=== PATIENT | female | born 1995 | race Caucasian/White ===

== ENCOUNTER 2016-09-10 07:12 | Emergency (ER) | payer OTHER ==
[~2016-09-10] VITALS: Ht 167.6 cm; Wt 109.8 kg
[~2016-09-10 07:12] MED LIST: ADVAIR DISKUS 21 DSK PO; ALBUTEROL2.5 MG/3 M INH/SOL; DICLEGIS DR 101 EACH PO; DIVALPROEX SOD250 M1 PO; MACROBID 100 M100 MG PO; MEDROL4 M2 PO; MONTELUKAST SOD10 MG PO; NORFLEX100 MG PO; PEPCID20 M1 PO; PERCOCET 5-3251 EACH PO; PRENATAL VITAM1 EAC1 PO; PROAIR HFA0.09 MG/Ac PO; PROAIR HFA8.5 GM INH; QVAR0.08 MG/Ac PO; RISPERIDONE2 MG PO; SYMBICORT 16010.2 GM INH; TRAMADOL HCL50 M1 PO; TRAMADOL50 MG PO; TYLENOL #31 TAB PO; ZOFRAN ODT4 M1 PO
--- NOTE | 2016-09-10 07:17 | ED GENERAL ADULT ---
History of Present Illness General Chief Complaint: Chest Pain Stated Complaint: CP-SEEN 09/08 FOR SAME, 6 MONTHS PREG Source: patient Exam Limitations: no limitations Vital Signs & Intake/Output Vital Signs & Intake/Output ED Intake and Output 09/11 0000 09/10 1200 Intake Total Output Total Balance Patient 242 lb Weight Allergies Coded Allergies: ibuprofen (Severe, HIVES 07/11/16) Reconcile Medications Albuterol Sulfate 3 ML NEB 3 ML INH PRN ASTHMA (Reported) Budesonide/Formoterol Fumara (Symbicort 160-4.5 Mcg Inhaler) 160 MCG/4.5 MCG PUF 2 PUF INH BID ASTHMA (Reported) Ondansetron (Zofran Odt) 4 MG TAB.RAPDIS 1 TAB PO Q8H PRN NAUSEA Vit/Iron Fumarate/FA ( Vitamin Formula Tb) 1 EACH TABLET 1 TAB PO DAILY Tylenol With Codeine (Tylenol With Codeine #4 Tablet) 300 MG-60 MG TABLET 1 TAB PO BID PRN PAIN Triage Nurses Notes Reviewed? yes Onset: Abrupt Duration: day(s): HPI: 09/10/16 7:30 AM 21-year-old female presents to the emergency department with severe chest pain, left neck pain, lower abdominal pain and left-sided flank pain. The patient has been seen in the emergency department for similar symptoms. She is currently on Zofran and Tylenol. She is currently approximately 6 months . She is a 1 para 0.. The onset of the pain was abrupt, the duration has been days , the severity is significant as her symptoms required her to come to the emergency department for care. She complains of suprapubic abdominal pain, left sided low back pain, anterior chest pain, and left-sided neck pain. She says it 's worse when she lies flat. There is no headache, visual disturbances, shortness of breath, vaginal bleeding, fever, or other complaints. She does have a past medical history of asthma. No significant past surgical history. She is allergic to ibuprofen ; she gets hives) she does not smoke. Past History Travel History Traveled to [place] past 21 day No Medical History Any Pertinent Medical History? 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 No Review of Systems Review of Systems Constitutional: Denies: fever. EENTM: Denies: visual changes. Respiratory: Denies: short of breath. Cardiovascular: Reports: chest pain. GI: Reports: see HPI. Genitourinary: Denies: dysuria, frequency. Musculoskeletal: Reports: back pain. Skin: Denies: rash. Neurological/Psychological: Denies: headache. Hematologic/Endocrine: Denies: bruising, bleeding. Physical Exam Physical Exam General Appearance: well developed/nourished, alert, awake, anxious, mild distress Head: atraumatic, normal appearance Eyes: Bilateral: normal appearance, PERRL, EOMI. Ears, Nose, Throat: normal pharynx, normal ENT inspection, hearing grossly normal Neck: normal inspection, supple, full range of motion Respiratory: normal breath sounds, chest non-tender, no respiratory distress Cardiovascular: regular rate/rhythm Peripheral Pulses: 4+ radial (R), 4+ radial (L) Gastrointestinal: soft, non-tender, UTERUS PALPABLE ABOVE THE UMBILICUS Back: normal inspection, no vertebral tenderness Extremities: normal inspection, normal range of motion, no edema Neurologic/Psych: no motor/sensory deficits, awake, alert, oriented x 3, normal gait Skin: intact, normal color, warm/dry Core Measures ACS in differential dx? No CVA/TIA Diagnosis: No Severe Sepsis Present: No Septic Shock Present: No Progress Differential Diagnoses I considered the following diagnoses in my evaluation of the patient: [ Costochondritis, round ligament pain, muscular pain due to gravid uterus, pulmonary embolism, pyelonephritis, renal colic, UTI, appendicitis, preeclampsia ] Plan of Care: Orders Procedure Date/time Status CULTURE,URINE 09/10 0634 Active URINALYSIS 09/10 07 Complete D-DIMER 09/10 733 Complete COMPREHENSIVE METABOLIC PANEL 09/10 07 Complete CBC WITHOUT DIFFERENTIAL 09/10 733 Complete EKG 09/10 0714 Active Laboratory Tests 09/10/16 0834: D-Dimer 216 09/10/16 0803: Urine Color YEL, Urine Clarity CLEAR, Urine pH 7.0, Ur Specific [place] 1.010, Urine Protein NEG, Urine Ketones NEG, Urine Nitrite NEG, Urine Bilirubin NEG, Urine Urobilinogen 0.2, Ur Leukocyte Esterase NEG, Ur Microscopic EXAM NOT REQUIRED, Urine Hemoglobin NEG, Urine Glucose NEG 09/10/16 0743: Anion Gap 8, Estimated GFR > 60, BUN/Creatinine Ratio 8.0, Glucose 86, Calcium 8.5, Total Bilirubin 0.3, AST 16, ALT 29, Alkaline Phosphatase 84, Total Protein 5.9 L, Albumin 2.9 L, Globulin 3.0, Albumin/Globulin Ratio 1.0 L, CBC w Diff NO MAN DIFF REQ, RBC 3.73 L, MCV 87.1, MCH 30.0, RDW 13.3, MPV 8.8, Gran % 78.0 H, Lymphocytes % 15.2 L, Monocytes % 5.8, Eosinophils % 0.9, Basophils % 0.1, Absolute Granulocytes 8.8 H, Absolute Lymphocytes 1.7, Absolute Monocytes 0.7 H, Absolute Eosinophils 0.1, Absolute Basophils 0, PUBS MCHC 34.4 Microbiology 09/10 08 URINE ROUT: Urine Culture - RECD Initial ED EKG: NSR Prior EKG: unchanged Departure Departure Disposition: HOME OR SELF CARE Condition: Stable Clinical Impression Primary Impression: Secondary Impressions: Abdominal pain, Chest pain Referrals: DAMIR HIGGINBOTHAM APRN (PCP/Family) Referred to [facility] as new patient No Departure Forms: Customer Survey General Discharge Information Prescriptions: Current Visit Scripts Tylenol With Codeine (Tylenol With Codeine #4 Tablet) 1 TAB PO BID PRN PAIN #6 TAB Comments 09/10/16 1:22 PM Ultrasound reveals mild bilateral hydronephrosis. Intrauterine . Results below. The patient is essentially asymptomatic at this time I spoke to Dr. Trinidad Devine. She is in agreement with the plan; patient will follow-up with [employer] GRINDER tomorrow Tylenol with codeine as needed for pain. PATIENT: SHAUNA BENAVIDEZ PRESENT AGE: 21 PATIENT ACCOUNT NO: [id number] : 93 LOCATION: [facility] ORDERING PHYSICIAN: ADRIEL BARAHONA DO SERVICE DATE: 09/10/16 EXAM TYPE: US - US- VIABILITY; US-RENAL/KIDNEY EXAMINATION: US RENAL US CLINICAL INFORMATION: patient with abdominal pain. Evaluate for hydronephrosis. COMPARISON: Previous exams July 2016. TECHNIQUE: Grayscale and color imaging of the kidneys. Limited transabdominal OB ultrasound. FINDINGS: RENAL ULTRASOUND: Exam is limited due to patient body habitus. The right kidney measures 11.6 x 5 point 4 x 4 by 5.9 cm in length. Renal cortical thickness and echogenicity is normal. There is a 3 mm echogenic density in the upper pole of the right kidney questionable for small stone. There are 2 right renal cysts measuring 3 x 4 mm in the upper pole and 11 x 8 x 9 mm in the midpole. There is mild right hydronephrosis. The left kidney measures 10.5 x 6.8 x 5.8 cm in length. Renal cortical thickness and echogenicity is normal. There is a 6 x 4 x 2 mm echogenic density in the mid left kidney questionable for a stone. No hydronephrosis or mass is seen. The bladder is partially distended. No stone or mass is seen. Bilateral ureteral jets are identified. Prevoid bladder volume is 80 mL. There is no post void bladder residual. OB ULTRASOUND: There is a single viable intrauterine fetus in breech position. heart rate is 154 bpm. There is an anterior placenta with grade 1 changes. Cervical length is 3.9 cm. The cervix appears long and closed. IMPRESSION: RENAL ULTRASOUND: Limited exam due to patient body habitus. Mild right hydronephrosis. Small right renal cysts. Bilateral small echogenic densities in the kidneys questionable for small stones. Bilateral ureteral jets identified in the bladder. ULTRASOUND: Single viable intrauterine in breech position. DICTATED BY: GAYLA MENDOSA MD DATE/TIME DICTATED:09/10/161138 CONSUMER BANKER:NIKOLE DATE/TIME TRANSCRIBED:09/10/161138 CONFIDENTIAL, DO NOT COPY WITHOUT APPROPRIATE AUTHORIZATION. <Electronically signed in Other Vendor System> SIGNED BY: GAYLA MENDOSA MD [id number] Critical Care Note Critical Care Note Critical Care Time: non-applicable
[2016-09-10 08:01] LABS: ABSOLUTE BASOPHIL COUNT 0 /CUMM (0.0-0.2); ABSOLUTE EOSINOPHIL COUNT 0.1 /CUMM (0.0-0.7); ABSOLUTE GRANULOCYTE CT 8.8 /CUMM (1.4-6.5); ABSOLUTE LYMPH COUNT 1.7 /CUMM (1.2-3.4); ABSOLUTE MONOCYTE COUNT 0.7 /CUMM (0.10-0.60); BASOPHIL % 0.1 % (0.0-2.0); EOSINOPHIL % 0.9 % (0-5); HEMATOCRIT 32.5 % (37-47); MEAN CORPUSCULAR HGB CONC 34.4 G/DL (33.0-37.0); MEAN CORPUSCULAR VOLUME 87.1 FL (81.0-99.0); MEAN PLATELET VOLUME 8.8 FL (7.4-10.4); PLATELET COUNT 219 /CUMM (130-400); RBC DISTRIBUTION WIDTH 13.3 % (11.5-14.5); RED BLOOD CELL CT 3.73 /CUMM (4.20-5.40); WHITE BLOOD CELL COUNT 11.2 /CUMM (4.8-10.8)
--- NOTE | 2016-09-10 13:20 | ULTRASOUND REPORT ---
EXAMINATION: US RENAL US CLINICAL INFORMATION: patient with abdominal pain. Evaluate for hydronephrosis. COMPARISON: Previous exams July 2016. TECHNIQUE: Grayscale and color imaging of the kidneys. Limited transabdominal OB ultrasound. FINDINGS: RENAL ULTRASOUND: Exam is limited due to patient body habitus. The right kidney measures 11.6 x 5 point 4 x 4 by 5.9 cm in length. Renal cortical thickness and echogenicity is normal. There is a 3 mm echogenic density in the upper pole of the right kidney questionable for small stone. There are 2 right renal cysts measuring 3 x 4 mm in the upper pole and 11 x 8 x 9 mm in the midpole. There is mild right hydronephrosis. The left kidney measures 10.5 x 6.8 x 5.8 cm in length. Renal cortical thickness and echogenicity is normal. There is a 6 x 4 x 2 mm echogenic density in the mid left kidney questionable for a stone. No hydronephrosis or mass is seen. The bladder is partially distended. No stone or mass is seen. Bilateral ureteral jets are identified. Prevoid bladder volume is 80 mL. There is no post void bladder residual. OB ULTRASOUND: There is a single viable intrauterine fetus in breech position. heart rate is 154 bpm. There is an anterior placenta with grade 1 changes. Cervical length is 3.9 cm. The cervix appears long and closed. IMPRESSION: RENAL ULTRASOUND: Limited exam due to patient body habitus. Mild right hydronephrosis. Small right renal cysts. Bilateral small echogenic densities in the kidneys questionable for small stones. Bilateral ureteral jets identified in the bladder. ULTRASOUND: Single viable intrauterine in breech position.
[2016-09-10] MEDS ORDERED: TYLENOL WITH C1 EAC1 PO (13:25)
[2016-09-10 13:36] VITALS: BP 118/58
== END 2016-09-10 13:37 ==
LOC: ERH 07:12
PROVIDERS: Emergency Medicine
DX: O26.92 Pregnancy related conditions, unspecified, second trimester (principal); R10.32 Left lower quadrant pain; R07.89 Other chest pain
CPT/HCPCS: 76775; 81003; 87086; 93005; 93010; 96374; J0131

== ENCOUNTER 2016-09-18 15:30 | Emergency (ER) | payer OTHER ==
[~2016-09-18] VITALS: Ht 168.9 cm; Wt 110.2 kg
[~2016-09-18 15:30] MED LIST changes: +TYLENOL WITH C1 EAC1 PO
--- NOTE | 2016-09-18 16:09 | ED AMS/SEIZURE/WEAK/DIZZY ---
History of Present Illness General Chief Complaint: Dizziness Stated Complaint: C/O DIZZINESS AND NAUSEA, 6 MO Source: patient, old records Exam Limitations: no limitations Vital Signs & Intake/Output Vital Signs & Intake/Output Vital Signs Date Time Temp Pulse Resp B/P Pulse O2 O2 Flow FiO2 Ox Delivery Rate 09/18 1534 97.2 83 20 138/84 98 Room Air Allergies Coded Allergies: ibuprofen (Severe, HIVES 09/23/16) Reconcile Medications Albuterol Sulfate 3 ML NEB 3 ML INH PRN ASTHMA (Reported) Albuterol Sulfate (Proair Hfa) 90 MCG HFA.AER.AD 2 PUF INH Q4-6 PRN PRN RESPIRATORY (Reported) Budesonide/Formoterol Fumara (Symbicort 160-4.5 Mcg Inhaler) 160 MCG/4.5 MCG PUF 2 PUF INH BID ASTHMA (Reported) Ciprofloxacin HCl (Cipro) 500 MG TABLET 1 TAB PO BID UTI Ondansetron HCl (Unknown Strength) TABLET (Unknown Dose) UNKNOWN (Reported) Vit/Iron Fumarate/FA ( Vitamin Formula Tb) 1 EACH TABLET 1 TAB PO DAILY Triage Note: TRIAGE: PT TO ER C/C INTERMITTENT UPPER ABDOMINAL PAIN, DIZZINESS, NAUSEA. DENIES VOMITING. DENIES URINARY S/S. DENIES FEVERS. DENIES RECENT SICK CONSTACTS. PT CURRENTLY 28 WEEKS , DUE DATE 01/02/2017. . PT OF DR DAMIAN. STATES WAS SEEN LAST WEEK FOR S/S OF BILATERAL FLANK PAIN AND WAS TOLD HER KIDNEYS WERE SWOLLEN AND THAT THE BABY WAS BREACH. REPORTS FEELING BABY MOVE PER NORMAL. SPOKE WITH DIANNA AMBROSE IN [facility] AND PATIENT IS TO REMAIN IN ER FOR EVAL AND THEY ARE AVAILABLE FOR HEART TONES IF NEEDED. Triage Nurses Notes Reviewed? yes Onset: Abrupt Duration: day(s): (1) Timing: single episode today Injury Environment: home Severity: mild No Modifying Factors: none : Yes Patient currently breastfeeds: No HPI: This is a 21 year old female at 6 months who presents with dizziness and epigastric discomfort. No vomiting, fever, chills. Denies any vaginal bleeding. No headache or blurred vision. Denies any trauma or sick contacts. She states she feels the baby moving well. SHe follows up with Dr. Damian and states that she is being monitored for bilatearl hydroureter. Past History Travel History Traveled to [place] past 21 day No Medical History Any Pertinent Medical History? 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 No Review of Systems Review of Systems Constitutional: Denies: chills, fever. EENTM: Reports: no symptoms. Respiratory: Denies: cough, short of breath. Cardiovascular: Denies: chest pain, palpitations. GI: Reports: abdominal pain (epigastric discomfort), nausea. Denies: vomiting. Genitourinary: Reports: no symptoms. Musculoskeletal: Reports: no symptoms. Skin: Reports: no symptoms. Neurological/Psychological: Reports: anxiety. Hematologic/Endocrine: Denies: bruising, bleeding, polyuria, polydipsia. Immunologic/Allergic: Denies: splenectomy. All Other Systems: Reviewed and Negative Physical Exam Physical Exam General Appearance: well developed/nourished, alert, awake, anxious, mild distress Head: atraumatic, normal appearance Eyes: Bilateral: normal appearance, PERRL, EOMI. Ears, Nose, Throat: normal pharynx, normal ENT inspection, hearing grossly normal Neck: normal inspection, supple, full range of motion Respiratory: normal breath sounds, chest non-tender, no respiratory distress Cardiovascular: regular rate/rhythm, normal peripheral pulses Peripheral Pulses: 2+ radial (R), 2+ radial (L) Gastrointestinal: soft, NONTENDER, GRAVID Extremities: normal range of motion Neurologic/Psych: no motor/sensory deficits, awake, alert, oriented x 3, normal gait Skin: intact, normal color, warm/dry Core Measures ACS in differential dx? No CVA/TIA Diagnosis: No Severe Sepsis Present: No Septic Shock Present: No Progress Differential Diagnosis: , ANEMIA, DEHYDRATION, HYPOGLYCEMIA, VERTIGO Plan of Care: Orders Procedure Date/time Status FingerStick- Glucose 09/18 1624 Active MISTAKE 09/18 1617 Active URINALYSIS 01/10 1617 Active EKG 09/18 1617 Active Current Medications Sig/Lala Start time Last Medication Dose Stop Time Status Admin Ondansetron HCl 4 MG ONCE ONE 09/18 1630 CAN (Zofran) 09/18 1631 Laboratory Tests 09/18/16 1653: Urine Color Pending, Urine Clarity Pending, Urine pH Pending, Ur Specific [place] Pending, Urine Protein Pending, Urine Ketones Pending, Urine Nitrite Pending, Urine Bilirubin Pending, Urine Urobilinogen Pending, Ur Leukocyte Esterase Pending, Ur Microscopic SEDIMENT EXAMINED, Urine RBC Pending, Urine Hemoglobin Pending, Urine Glucose Pending Initial ED EKG: none Departure Departure Time of Disposition: 1714 Disposition: HOME OR SELF CARE Condition: Stable Clinical Impression Primary Impression: Dizziness Secondary Impressions: Referrals: DAMIR HIGGINBOTHAM APRN (PCP/Family) Additional Instructions: FOLLOW UP WITH YOUR OB IN THE OFFICE. RETURN NEEDED. Departure Forms: Customer Survey General Discharge Information
[2016-09-18] MEDS ORDERED: ONDANSETRON HCL4 MG (16:24)
[2016-09-18] MEDS ORDERED: PROAIR HFA8.5 GM INH (16:25)
[2016-09-18 17:18] VITALS: BP 124/78
== END 2016-09-18 17:19 ==
LOC: ERH 15:30
DX: O26.93 Pregnancy related conditions, unspecified, third trimester (principal); R42 Dizziness and giddiness; Z3A.28 28 weeks gestation of pregnancy
CPT/HCPCS: 81001; 93005; 93010; J3101

== ENCOUNTER 2016-09-23 18:07 | Emergency (ER) | payer OTHER ==
[~2016-09-23] VITALS: Ht 168.9 cm; Wt 110.2 kg
[~2016-09-23 18:07] MED LIST changes: +ONDANSETRON HCL4 MG
--- NOTE | 2016-09-23 18:54 | ED GI/GU/ABDOMINAL COMPLAINT ---
History of Present Illness General Chief Complaint: General Adult Stated Complaint: UPPER AND LOWER ABD PAIN Source: patient Exam Limitations: no limitations Vital Signs & Intake/Output Vital Signs & Intake/Output Vital Signs Date Time Temp Pulse Resp B/P Pulse O2 O2 Flow FiO2 Ox Delivery Rate 09/23 2011 97.2 83 18 105/66 97 Room Air 09/23 1810 98.0 87 20 101/66 98 Room Air Allergies Coded Allergies: ibuprofen (Severe, HIVES 09/23/16) Triage Note: TRIAGE: PT TO ER C/C DIFFUSE ABD PAIN X "A LITTLE OVER AN HOUR AGO". CONSTANT SINCE ONSET. -N/V/D. LNBM THIS MORNING, -URINARY S/S. LMP UNKNOWN. PT CURRENTLY 25 WEEKS , , DUE DATE 01/02/2017. PATIENT OF DR DAMIAN. DENIES VAGINAL BLEEDING OR DISCHARGE. WAS SEEN AND CLEARED BY MATERNITY PRIOR TO BEING SENT TO ER. Triage Nurses Notes Reviewed? yes ? Y Is pt currently ? No HPI: This patient is a 21-year-old female who is approximately 6 months gestation who presented to the emergency department today sent down to us by the maternity Center after she was obstructed typically cleared for evaluation of upper abdominal pain. The patient reported that this evening she started to have acute onset of lower and upper abdominal pain. She reported that it felt cramping and sharp. She reported that it was originally a 9 out of 10. When she got to the maternity Center here [facility], the pain went down to an 8 out of 10. The pain is currently a 7 out of 10. The patient reported that she has not had any nausea or vomiting. She denied any urinary burning, urgency , frequency, blood in the urine. No leakage of fluids. The baby is still moving normally. She denied any fevers or chills, constipation or diarrhea. The patient did report that her pain now seems to be localized right upper abdomen. (SARA WOODS,YULIA) Reconcile Medications Albuterol Sulfate 3 ML NEB 3 ML INH PRN ASTHMA (Reported) Albuterol Sulfate (Proair Hfa) 90 MCG HFA.AER.AD 2 PUF INH Q4-6 PRN PRN RESPIRATORY (Reported) Budesonide/Formoterol Fumara (Symbicort 160-4.5 Mcg Inhaler) 160 MCG/4.5 MCG PUF 2 PUF INH BID ASTHMA (Reported) Ciprofloxacin HCl (Cipro) 500 MG TABLET 1 TAB PO BID UTI Ondansetron HCl (Unknown Strength) TABLET (Unknown Dose) UNKNOWN (Reported) Vit/Iron Fumarate/FA ( Vitamin Formula Tb) 1 EACH TABLET 1 TAB PO DAILY (MADELINE YEBOAH,JHON Tirado) Past History Travel History Traveled to [place] past 21 day No Medical History Any Pertinent Medical History? 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 No (YULIA RUIZ PA-C) Review of Systems Review of Systems Constitutional: Reports: no symptoms. EENTM: Reports: no symptoms. Respiratory: Reports: no symptoms. Cardiovascular: Reports: no symptoms. GI: Reports: see HPI. Genitourinary: Reports: no symptoms. Musculoskeletal: Reports: no symptoms. Skin: Reports: no symptoms. Neurological/Psychological: Reports: no symptoms. All Other Systems: Reviewed and Negative (YULIA RUIZ PA-C) Physical Exam Physical Exam Gastrointestinal: normal bowel sounds, soft, non-tender, no organomegaly, UTERUS PALPABLE APPROXIMATELY 4 CM ABOVE THE UMBILICUS. nO REBOUND OR GUARDING. nO PERITONEAL SIGNS.NEGATIVE Anderson SIGN. nO mCbURNEY'S POINT TENDERNESS Comments: Well-developed well-nourished person in no acute distress HEENT: Normal EENT exam, moist mucous membranes Neck: Supple Back: Normal inspection. No CVA tenderness Cardiovascular: Regular rate and rhythm with no murmurs, rubs, or gallops Respiratory: Chest nontender. No respiratory distress. Breath sounds clear to auscultation bilaterally Extremity: Normal and equal pulses Neuro: Alert oriented x3, cranial nerves II through XII grossly intact. Skin: No appreciable rash on exposed skin, skin is warm and dry. Psych: Mood and affect is normal Core Measures ACS in differential dx? Yes Severe Sepsis Present: No Septic Shock Present: No (YULIA RUIZ PA-C) Progress Differential Diagnosis: AAA, AMI, appendicitis, biliary colic, bowel obstruction , colon cancer, cholecystitis, diverticulitis, ectopic , endometritis, gastritis, hepatitis, ischemic bowel, inflamm bowel dis, intrauterine , kidney stone, ovarian cyst, ovarian torsion, pancreatitis, PID/cervicitis, PUD/ GERD, perforated viscous, threatened AB, UTI/pyelo Plan of Care: Orders Procedure Date/time Status Add-on Test (ER Only) 09/23 1922 Active LIPASE 09/23 1858 Complete DIRECT BILIRUBIN 09/23 1858 Complete AMYLASE 09/23 1858 Complete HUMAN BETA HCG TITRE 09/23 1836 Complete COMPREHENSIVE METABOLIC PANEL 09/23 1836 Complete CBC WITHOUT DIFFERENTIAL 09/23 1836 Complete Laboratory Tests 09/23/161858: Anion Gap 7, Estimated GFR > 60, BUN/Creatinine Ratio 8.6, Glucose 104 H, Calcium 8.5, Total Bilirubin 0.4, Direct Bilirubin 0.3, AST 16, ALT 19, Alkaline Phosphatase 91, Total Protein 6.3, Albumin 3.1 L, Globulin 3.2, Albumin/ Globulin Ratio 1.0 L, Amylase 41, Lipase 85, Beta HCG, Quant 69225.0, CBC w Diff NO MAN DIFF REQ, RBC 3.76 L, MCV 86.4, MCH 29.6, RDW 13.7, MPV 8.3, Gran % 81.6 H, Lymphocytes % 12.5 L, Monocytes % 4.6, Eosinophils % 0.8, Basophils % 0.5, Absolute Granulocytes 9.1 H, Absolute Lymphocytes 1.4, Absolute Monocytes 0.5, Absolute Eosinophils 0.1, Absolute Basophils 0.1, PUBS MCHC 34.3 09/23/161836: Urine Color Cancelled, Urine Clarity Cancelled, Urine pH Cancelled, Ur Specific Manning Cancelled, Urine Protein Cancelled, Urine Ketones Cancelled, Urine Nitrite Cancelled, Urine Bilirubin Cancelled, Urine Urobilinogen Cancelled, Ur Leukocyte Esterase Cancelled, Ur Microscopic Cancelled, Urine Hemoglobin Cancelled, Urine Glucose Cancelled Initial ED EKG: none Comments: 09/23/2016 6:52:24 PM: Prior to coming into the emergency department, the patient was evaluated and cleared by the childbirth center upstairs. Because she was cleared by [facility] just prior to arrival here in the emergency department, a ultrasound is deferred at this time as ultrasound is not even in the department at this time anymore. Discussed this with Dr. Orellana who is in agreement with this plan. I received a copy of the urinalysis that was collected from the patient approximately one hour ago at 1745. Based on this recent urinalysis, repeat UA was DC'd. This urinalysis is showing 50-75 white blood cells with moderate bacteria and moderate urine esterase. This patient will likely need to be started on another antibiotic for a urinary tract infection. Urine culture is currently pending. 09/23/2016 7:14:17 PM: Discussed the patient with Dr. BERRY, on-call HEEL SEAT FILLER who evaluated this patient in the childbirth center just prior to arrival in the emergency department. She reported that everything looked good that the baby upstairs. She reported that her pain seems to be above the level of the uterus so she is questioning a possible GI issue. Recommended that if the urine sensitivity does not come back prior to discharge, to cover this patient with a course of ciprofloxacin. She reported that she be discussed with this patient in follow-up in the office tomorrow and to drink plenty of fluids as her urine does look concentrated. (YULIA RUIZ PA-C) Departure Departure Disposition: HOME OR SELF CARE Condition: Stable Clinical Impression Primary Impression: UTI (urinary tract infection) Qualifiers: Urinary tract infection type: site unspecified Hematuria presence: without hematuria Qualified Code: N39.0 - Urinary tract infection, site not specified Referrals: DAMIR HIGGINBOTHAM APRN (PCP/Family) Additional Instructions: Take antibiotic as prescribed for urinary tract infection. Continue to take [id number] Tylenol as needed for pain. Please follow-up with your HEEL SEAT FILLER as discussed. Return for any worsening symptoms or concerns. Departure Forms: Customer Survey General Discharge Information Prescriptions: Current Visit Scripts Ciprofloxacin HCl (Cipro) 1 TAB PO BID #14 TAB (YULIA RUIZ PA-C) PA/PRODUCT PICKER Co-Sign Statement Statement: ED Attending supervision documentation- [] I saw and evaluated the patient. I have also reviewed all the pertinent lab results and diagnostic results. I agree with the findings and the plan of care as documented in the PA's/PRODUCT PICKER's documentation. [X] I have reviewed the ED Record and agree with the PA's/PRODUCT PICKER's documentation. [] Additions or exceptions (if any) to the PAs/PRODUCT PICKER's note and plan are summarized below: [] (MADELINE YEBOAH,JHON Tirado)
[2016-09-23 19:03] LABS: ABSOLUTE BASOPHIL COUNT 0.1 /CUMM (0.0-0.2); ABSOLUTE EOSINOPHIL COUNT 0.1 /CUMM (0.0-0.7); ABSOLUTE GRANULOCYTE CT 9.1 /CUMM (1.4-6.5); ABSOLUTE LYMPH COUNT 1.4 /CUMM (1.2-3.4); ABSOLUTE MONOCYTE COUNT 0.5 /CUMM (0.10-0.60); BASOPHIL % 0.5 % (0.0-2.0); EOSINOPHIL % 0.8 % (0-5); GRANULOCYTE % 81.6 % (42.2-75.2); HEMATOCRIT 32.5 % (37-47); MEAN CORPUSCULAR HGB 29.6 PG (27.0-31.0); MEAN CORPUSCULAR HGB CONC 34.3 G/DL (33.0-37.0); MEAN CORPUSCULAR VOLUME 86.4 FL (81.0-99.0); MEAN PLATELET VOLUME 8.3 FL (7.4-10.4); PLATELET COUNT 248 /CUMM (130-400); RBC DISTRIBUTION WIDTH 13.7 % (11.5-14.5); RED BLOOD CELL CT 3.76 /CUMM (4.20-5.40); WHITE BLOOD CELL COUNT 11.1 /CUMM (4.8-10.8)
[2016-09-23] MEDS ORDERED: CIPRO500 M1 PO (20:01)
[2016-09-23 20:12] VITALS: BP 105/66
== END 2016-09-23 20:13 ==
LOC: ERH 18:07
PROVIDERS: Physician Assistant
DX: O23.42 Unspecified infection of urinary tract in pregnancy, second trimester (principal); Z3A.00 Weeks of gestation of pregnancy not specified
CPT/HCPCS: 81001; 87086; 96374; 96375; G0463; J0131; J2405

== ENCOUNTER 2016-09-27 13:26 | Emergency (ER) | payer OTHER ==
[~2016-09-27] VITALS: Ht 167.6 cm; Wt 110.2 kg
[~2016-09-27 13:26] MED LIST changes: +CIPRO500 M1 PO
--- NOTE | 2016-09-27 13:53 | ED PSYCHIATRIC COMPLAINT ---
History of Present Illness General Chief Complaint: Psychiatric Related Complaint Stated Complaint: BIBA ON PEER Source: patient, old records Exam Limitations: no limitations Vital Signs & Intake/Output Vital Signs & Intake/Output Vital Signs Date Time Temp Pulse Resp B/P Pulse O2 O2 Flow FiO2 Ox Delivery Rate 09/27 1843 96.7 86 16 114/59 97 Room Air 09/27 1612 98.2 85 18 134/76 98 Room Air 09/27 1329 98 Room Air 09/27 1328 98.1 90 18 140/75 97 Room Air Allergies Coded Allergies: ibuprofen (Severe, HIVES 09/23/16) Reconcile Medications Albuterol Sulfate 3 ML NEB 3 ML INH PRN ASTHMA (Reported) Albuterol Sulfate (Proair Hfa) 90 MCG HFA.AER.AD 2 PUF INH Q4-6 PRN PRN RESPIRATORY (Reported) Budesonide/Formoterol Fumara (Symbicort 160-4.5 Mcg Inhaler) 160 MCG/4.5 MCG PUF 2 PUF INH BID ASTHMA (Reported) Ciprofloxacin HCl (Cipro) 500 MG TABLET 1 TAB PO BID UTI Ondansetron HCl (Unknown Strength) TABLET (Unknown Dose) UNKNOWN (Reported) Vit/Iron Fumarate/FA ( Vitamin Formula Tb) 1 EACH TABLET 1 TAB PO DAILY Triage Nurses Notes Reviewed? yes : Yes Patient currently breastfeeds: No HPI: 21-year-old female with history of depression, currently 6 months with her first child, first , presents via ambulance with police on a paper. She was at home, lives with her mother, was arguing with her mother when she grabbed a kitchen knife and locked herself in the room and told her mother she was going to kill herself. This prompted her to call police and she was brought here. Patient denies being suicidal at this time however does state that she is depressed and she is worried about delivering in caring for her child after she does deliver because she will be a single mother. She denies any drug or alcohol use, she was seen here 4 days ago for abdominal pain and dizziness and was diagnosed with UTI. She has been on antibiotics for this, no other change in medications. No abdominal pain no vaginal discharge or abnormal bleeding (CHETAN BOWSER) Past History Travel History Traveled to [place] past 21 day No Medical History Any Pertinent Medical History? 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 No (CHETAN BOWSER) Review of Systems Review of Systems Constitutional: Reports: see HPI. EENTM: Reports: no symptoms. Respiratory: Reports: no symptoms. Cardiovascular: Reports: no symptoms. GI: Reports: no symptoms. Genitourinary: Reports: no symptoms. Musculoskeletal: Reports: no symptoms. Skin: Reports: no symptoms. Neurological/Psychological: Reports: see HPI. Hematologic/Endocrine: Reports: no symptoms. Immunologic/Allergic: Reports: no symptoms. All Other Systems: Reviewed and Negative (CHETAN BOWSER) Physical Exam Physical Exam General Appearance: well developed/nourished, mild distress Head: atraumatic Eyes: Bilateral: PERRL, EOMI. Ears, Nose, Throat: normal pharynx, normal ENT inspection, hearing grossly normal Neck: normal inspection, supple Respiratory: normal breath sounds Cardiovascular: regular rate/rhythm Gastrointestinal: soft, non-tender, gravid Extremities: normal range of motion Neurological/Psychiatric: no motor/sensory deficits, awake, alert, anxious Appearance/Memory/Insight: appropriate appearance, appropriate insight, denies illness Behavoir/Eye Contact/Speech: cooperative Thoughts/Hallucinations: normal thought pattern, no apparent hallucination Skin: intact, normal color, warm/dry SAD PERSONS SAD PERSONS Response Value Depression/Hopelessness? yes 2 Single//? yes 1 Social Support? has support 0 Total 3 SAD PERSONS Done? yes (CHETAN BOWSER) Progress Differential Diagnosis: dementia, drug intoxication, drug overdose, drug withdrawal, electrolyte abnormality, encephalitis, hypoglycemia, hypothyroidism, IC hem/mass/tumor, meningitis Plan of Care: Orders Procedure Date/time Status Continuous Observation Monitor 09/27 1338 Active URINE DRUG SCREEN FOR ER ONLY 09/27 1338 Complete URINALYSIS 09/27 1338 Complete ED CRISIS PSYCH CONSULT 09/27 1338 Active Laboratory Tests 09/27/16 1812: Urine Color YEL, Urine Clarity CLEAR, Urine pH 6.0, Ur Specific Stout >= 1.030 , Urine Protein NEG, Urine Ketones NEG, Urine Nitrite NEG, Urine Bilirubin NEG, Urine Urobilinogen 0.2, Ur Leukocyte Esterase TRACE H, Ur Microscopic SEDIMENT EXAMINED, Urine RBC FEW H, Urine WBC 15-25 H, Ur Epithelial Cells MANY H, Urine Crystals 1+ CA OX H, Urine Mucus MOD H, Urine Hemoglobin NEG, Urine Glucose NEG 09/27/16 1811: Urine Opiates Screen < 100.00, Methadone Screen < 40, Barbiturate Screen < 60, Ur Phencyclidine Scrn < 6.00, Amphetamines Screen < 100, U Benzodiazepines Scrn < 85, Urine Cocaine Screen < 50, Urine Cannabis Screen < 5.00 Comments: Patient calm and cooperative, she just had labs 3 days ago and does not require repeat laboratory evaluations. She will require evaluation by our wet chemistry analyst for depression and suicidal gesture. Patient seen and evaluated by crisis. Recommend outpatient follow-up (CHETAN BOWSER) Departure Departure Disposition: HOME OR SELF CARE Condition: Stable Clinical Impression Primary Impression: Depression Qualifiers: Depression Type: major depressive disorder Major depression recurrence: recurrent Active/Remission status: currently active Major depression episode severity: severe Psychotic features: without psychotic features Qualified Code: F33.2 - Major depressive disorder, recurrent severe without psychotic features Secondary Impressions: Mood disorder Referrals: DAMIR HIGGINBOTHAM APRN (PCP/Family) Additional Instructions: Follow-up with the recommendation by wet chemistry analyst for outpatient counseling Departure Forms: Customer Survey General Discharge Information (CHETAN BOWSER) PA/LAUNCH MANAGER Co-Sign Statement Statement: ED Attending supervision documentation- [] I saw and evaluated the patient. I have also reviewed all the pertinent lab results and diagnostic results. I agree with the findings and the plan of care as documented in the PA's/LAUNCH MANAGER's documentation. x I have reviewed the ED Record and agree with the PA's/LAUNCH MANAGER's documentation. [] Additions or exceptions (if any) to the PAs/LAUNCH MANAGER's note and plan are summarized below: [] (KALEN YEBOAH,STEFFANIE)
[2016-09-27 18:43] VITALS: BP 114/59
--- NOTE | 2016-09-27 18:52 | ED PSYCH CRISIS CONSULTATION ---
Crisis Consult Basic Assessment Date of Consult: 09/27/16 Responsible Person/Accompanied By: Patient PATTIE Insurance Authorization: Insurance #1: Insurance name: AUDI Arellano C&A Phone number: Policy number: [id number] Group number: Authorization number: ED Provider: Patient's ED Provider: CHETAN BOWSER Primary Care Physician: Patient's PCP: DAMIR HIGGINBOTHAM APRN PCP's Current Psychiatrist: [facility] Chief Complaint: Psychiatric Related Complaint Patient's Quote: "I had a fight with my mom and she called the police." Present Illness: Patient is a 21 year old single , 7 months , female who was BIBA on PEER due to altercation with mother and making suicidal gesture. Patient resides with her mother and two sisters in [place], [place]. Patient reports that she had an argument with her mother last evening that led into today regarding needing new bras and not being able to financially afford it at time. Patient is presently denying SI and denies making any suicidal comments this evening. She reports that she was arguing with her mother and took a steak knife from the kitchen to her room and locked herself in the room. She denies verbally stating any intent to hurt herself but refused to open door for her mother. Patients mother then proceeded to call the cryptologic support specialist who then had to break down patients bedroom door and patient was PATTIE. Patient was calm, cooperative, answering questions to the best of her ability. She was alert and oriented X3. She presented as intellectually impaired/ learning disability with some difficulty responding to questions appropriately. Patient reports a lengthy history of outpatient mental health history and is currently in treatment at [facility] but has missed her two last appointments with her clinician, Dameon Aguilera. Patient reports no current psychotropic medications. Patient has completed IOP with [facility] in the past which she reports was court mandated due to domestic violence charge. Patient denies any inpatient psych hospitalizations in lifetime. Patient reports that she plans to start [employer] school next which will be 5 days a week. 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 Patient denies SI/HI/AH/VH at present and does not appear to be exhibiting psychotic symptoms. This fiction writer spoke with patients mother, Mary Barton ([phone]), who reported the same situation regarding the argument revolving around bras that lead up to her going into the room with a knife. Mom does not feel patient would actually hurt herself and thinks this was done for attention. Mom reports that patient has a history of similar situations, even before she was . She believes she acts this way when she does not get her way but has never actually acted on her threats. Patient's [address]: [address] [place] [address] Other Phone Number: Who Do You Live With? Mother Family/Informants Interviewed: Patient's mother Mary. Allergies - Coded Allergies: ibuprofen (Severe, HIVES 09/23/16) Current Medications - Scheduled Medications Budesonide/Formoterol Fumara (Symbicort 160-4.5 Mcg Inhaler) 160 MCG/4.5 MCG PUF 2 PUF INH BID ASTHMA #10 (Reported) Entered as Reported by GISELE BEAUCHAMP on 12/03/141912 Ciprofloxacin HCl (Cipro) 500 MG TABLET 1 TAB PO BID UTI #14 TAB Prescribed by YULIA RUIZ on 09/23/16 Vit/Iron Fumarate/FA ( Vitamin Formula Tb) 1 EACH TABLET 1 TAB PO DAILY #30 TAB Prescribed by CHETAN WRAY on 05/19/16 Scheduled PRN Medications Albuterol Sulfate 3 ML NEB 3 ML INH PRN ASTHMA (Reported) Entered as Reported by GISELE BEAUCHAMP on 12/03/141912 Albuterol Sulfate (Proair Hfa) 90 MCG HFA.AER.AD 2 PUF INH Q4-6 PRN PRN RESPIRATORY #9 (Reported) Entered as Reported by GISELE BEAUCHAMP on 09/18/16 1625 Miscellaneous Medications Ondansetron HCl (Unknown Strength) TABLET (Unknown Dose) UNKNOWN #42 ( Reported) Entered as Reported by GISELE BEAUCHAMP on 09/18/16 1624 Past History Past Medical History Neurological: NONE EENT: NONE Cardiovascular: NONE Respiratory: asthma Gastrointestinal: NONE Hepatic: cholelithiasis Renal: NONE Musculoskeletal: knee pain Psychiatric: depression Endocrine: obesity Blood Disorders: NONE Cancer(s): NONE 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 Past Surgical History Surgical History: none Psychosocial History Strengths/Capabilities: has housing, she currently has services through [facility] Physical Limitations (Interventions): weak knee, in ankle cuffs Psychiatric Treatment History Psych Treatment Psychiatric Treatment Yes Inpatient Treatment No Outpatient Treatment Yes Location of Treatment [facility], IOP Reason for Treatment Depression Dates of Treatment Multiple tx episodes Response to Treatment unknown Diagnosis by History: Mood Disorder NOS, Intermittant Explosive Disorder Substance Use/Abuse History Drug Use/Abuse Substances Used/Abused No Substance Abuse Treatment Substance Abuse Treatment Past Substance Abuse [place] No Inpatient Treatment No Outpatient Treatment No Current Mental Status Mental Status Orientation: Person, Place, Situation Affect: WNL Speech: WNL Neuro-vegetative: WNL Appearance Appearance- Dress/Hygiene: In hospital issued scrubs, normal eye contact, normal hygiene, able to engage in conversation easily. Behaviors Thought Process: WNL Thought Content: WNL Memory: WNL Insight: Fair SI/HI Risk Assessment Past Suicidal Ideation/Attempts Yes Current Suicidal Ideation/Att No Past Homicidal Ideation/Att: No Current Homicidal Ideation/Attempts No Degree of Intent: None Risk Factors: age (under 24/over 65), high anxiety/distress Lethality Ratin (mild) PTSD Checklist PTSD Done? patient declined ED Management Sitter: Yes Restraints: No DSM5/PS Stressors/Medical Prob Diagnosis' (DSM 5, Stressors, Medical): [place] I: Unspecified bipolar and related disorders F31.9 [place] III: Asthma Current GAF: 45 Departure Disposition Psych Medical Clearance Date: 09/27/16 Medically Cleared at: 1830 Time Started: 1830 Time Ended: 1899 Psychiatrist Consulted: Dr. Hernandez Date Disposition Established: 09/27/16 Time Disposition Established: 1909 Plan for Disposition - Modality: Outpatient Facility: Care Rationale for Disposition: Patient denies SI/HI/AH/VH. Patient able to contract for safety and mom agrees patient is safe to return home. Additional Instructions: Patient to follow up with Care providers and re-engage in therapy with Dameon Aguilera. Referrals DAMIR HIGGINBOTHAM APRN (PCP/Family)
== END 2016-09-27 20:02 ==
LOC: ERH 13:26
DX: O99.342 Other mental disorders complicating pregnancy, second trimester (principal); F32.9 Major depressive disorder, single episode, unspecified; F39 Unspecified mood [affective] disorder; Z3A.26 26 weeks gestation of pregnancy
CPT/HCPCS: 80307; 81001; G0463

== ENCOUNTER 2016-09-30 22:16 | Emergency (ER) | payer OTHER ==
[~2016-09-30] VITALS: Ht 167.6 cm; Wt 110.7 kg
[2016-09-30 22:21] VITALS: BP 144/67
--- NOTE | 2016-09-30 22:22 | ED GI/GU/ABDOMINAL COMPLAINT ---
History of Present Illness General Chief Complaint: Abdominal Pain/Flank Pain Stated Complaint: " LT FLANK PAIN, 26WKS PREG" Source: patient Exam Limitations: no limitations Vital Signs & Intake/Output Vital Signs & Intake/Output Vital Signs Date Time Temp Pulse Resp B/P Pulse O2 O2 Flow FiO2 Ox Delivery Rate 09/30 2246 Room Air 09/301 96.8 84 18 144/67 97 Room Air Allergies Coded Allergies: ibuprofen (Severe, HIVES 09/23/16) Reconcile Medications Albuterol Sulfate 3 ML NEB 3 ML INH PRN ASTHMA (Reported) Albuterol Sulfate (Proair Hfa) 90 MCG HFA.AER.AD 2 PUF INH Q4-6 PRN PRN RESPIRATORY (Reported) Budesonide/Formoterol Fumara (Symbicort 160-4.5 Mcg Inhaler) 160 MCG/4.5 MCG PUF 2 PUF INH BID ASTHMA (Reported) Ciprofloxacin HCl (Cipro) 500 MG TABLET 1 TAB PO BID UTI Ondansetron HCl (Unknown Strength) TABLET (Unknown Dose) UNKNOWN (Reported) Vit/Iron Fumarate/FA ( Vitamin Formula Tb) 1 EACH TABLET 1 TAB PO DAILY Triage Nurses Notes Reviewed? yes ? Y Is pt currently ? No Onset: Gradual Duration: hour(s): Timing: recent history Quality/Severity: cramping Location: LEFT BACK AND LOWER PELVIS Radiation: no radiation Activities at Onset: none Prior Abdominal Problems: none Modifying Factors: Worsens With: lying down, movement. Associated Symptoms: BACK PAIN HPI: 21-year-old woman who is 23 weeks gestation presents with left back pain and bilateral groin pain. She notes that she has nearly completed a course of Cipro for a urinary tract infection. She has one dose left. She notes that she is feeling well except that when she sits she feels pain in her groin bilaterally. And when she lays on the bed she feels pain in her left back. Upon arrival she was referred to give such X unit. They evaluated her and determined that she was not in labor and she did not have contractions. heart tones were within normal limits Past History Travel History Traveled to [place] past 21 day No Medical History Any Pertinent Medical History? 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 No Review of Systems Review of Systems Constitutional: Reports: no symptoms. EENTM: Reports: no symptoms. Respiratory: Reports: no symptoms. Cardiovascular: Reports: no symptoms. GI: Reports: no symptoms. Genitourinary: Reports: no symptoms. Musculoskeletal: Reports: no symptoms. Skin: Reports: no symptoms. Neurological/Psychological: Reports: no symptoms. Hematologic/Endocrine: Reports: no symptoms. Immunologic/Allergic: Reports: no symptoms. All Other Systems: Reviewed and Negative Physical Exam Physical Exam General Appearance: well developed/nourished, no apparent distress Head: atraumatic, normal appearance Eyes: Bilateral: normal appearance. Ears, Nose, Throat, Mouth: hearing grossly normal Neck: normal inspection, supple, full range of motion, normal alignment Respiratory: normal breath sounds, chest non-tender, no respiratory distress, quiet respiration, lungs clear Cardiovascular: regular rate/rhythm Gastrointestinal: normal bowel sounds, soft, non-tender Back: normal inspection, left sided paraspinal muscle spasm Extremities: normal range of motion Neurologic/Psych: no motor/sensory deficits, awake, alert, oriented x 3 Skin: intact, normal color, warm/dry Core Measures ACS in differential dx? No Severe Sepsis Present: No Septic Shock Present: No Progress Differential Diagnosis: UTI/pyelo, muscle pain, round ligament pain versus other Plan of Care: Laboratory Tests 09/30/16 2222: Urine Color Cancelled, Urine Clarity Cancelled, Urine pH Cancelled, Ur Specific [place] Cancelled, Urine Protein Cancelled, Urine Ketones Cancelled, Urine Nitrite Cancelled, Urine Bilirubin Cancelled, Urine Urobilinogen Cancelled, Ur Leukocyte Esterase Cancelled, Ur Microscopic Cancelled, Urine Hemoglobin Cancelled, Urine Glucose Cancelled Initial ED EKG: none Departure Departure Disposition: HOME OR SELF CARE Condition: Stable Clinical Impression Primary Impression: Muscle spasm Secondary Impressions: Referrals: DAMIR HIGGINBOTHAM APRN (PCP/Family) Departure Forms: Customer Survey General Discharge Information Comments Patient feels well in the emergency department. She has no dysuria. Her UA suggests an improving UTI versus colonization. Her groin pain is positional and her left lower back pain appears musculoskeletal. I doubt kidney infection. Her discomfort is most likely musculoskeletal in nature, perhaps do to increased ligamental laxity from her . I encouraged her to complete her antibiotic course and to follow-up with her bone glue maker and to return to the emergency department for symptoms do not evelyn. I also suggested spare dosing of Tylenol as needed.
== END 2016-09-30 22:47 ==
LOC: ERH 22:16
DX: O99.89 Other specified diseases and conditions complicating pregnancy, childbirth and the puerperium (principal); M62.830 Muscle spasm of back; Z3A.23 23 weeks gestation of pregnancy
CPT/HCPCS: 81001; 87086; G0463

== ENCOUNTER 2016-10-18 18:13 | Emergency (ER) | payer OTHER ==
--- NOTE | 2016-10-18 18:35 | ED GI/GU/ABDOMINAL COMPLAINT ---
History of Present Illness General Chief Complaint: Abdominal Pain/Flank Pain Stated Complaint: LEFT SIDE BACK/ABD PAIN 29 WEEKS Source: patient, old records Exam Limitations: no limitations Vital Signs & Intake/Output Vital Signs & Intake/Output Vital Signs Date Time Temp Pulse Resp B/P Pulse O2 O2 Flow FiO2 Ox Delivery Rate 10/18 1845 97.1 90 18 134/85 96 Room Air Room Air Allergies Coded Allergies: ibuprofen (Severe, HIVES 09/23/16) Reconcile Medications Albuterol Sulfate 2.5 MG/3 ML (0.083 %) VIAL.NEB 1 Vial INH/NAYA PRN ASTHMA ( Reported) Albuterol Sulfate (Proair Hfa) 90 MCG HFA.AER.AD 2 PUF INH Q4-6 PRN PRN RESPIRATORY (Reported) Budesonide/Formoterol Fumarate (Symbicort 160-4.5 Mcg Inhaler) 160 MCG-4.5 MCG/ ACTUATION HFA.AER.AD 2 PUF INH BID ASTHMA (Reported) Nitrofurantoin Monohyd/M-Cryst (Macrobid 100 MG Capsule) 100 MG CAPSULE 1 CAP PO BID uti with food Vit/Iron Fumarate/FA ( Vitamin Formula Tb) 1 EACH TABLET 1 TAB PO DAILY Triage Nurses Notes Reviewed? yes ? y Is pt currently ? No Onset: Gradual Duration: worse persistent since (2 days) Timing: recent history Quality/Severity: aching, moderate Severity Numbers: 6 Location: left flank Radiation: back Activities at Onset: none Prior Abdominal Problems: similar symptoms Past Sexual History: Unobtainable at this time No Modifying Factors: none HPI: Patient is a 21-year-old female who is currently 29 weeks presenting to the emergency department with chief complaint of left flank pain that things going on for the past several weeks, she has been seen multiple times for same pain. She reports that Tylenol did not help this morning so she decided come in for evaluation. She does report intermittent nausea over the past several weeks. She does report urinary frequency but denies dysuria or hematuria. No vaginal bleeding or discharge. Denies any weakness. She's been eating and drinking without difficulties. She has an appointment with Dr. Marshall this coming week. Denies any fevers or chills. Her next STORE CUSTODIAN appointment is next week. Nothing seems to make the pain better or worse. Denies any rashes over the area. (MAGED LAI) Past History Travel History Traveled to [place] past 21 day No Medical History Any Pertinent Medical History? 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 No (MAGED LAI) Review of Systems Review of Systems Constitutional: Reports: no symptoms. Comments Review of systems: See HPI, All other systems negative. Constitutional, no chills fever or weight loss HEENT: No visual changes no sore throat no congestion Cardiovascular: No chest pain ,palpitation , orthopnea or ankle swelling Skin, no jaundice no rashes Respiratory: No dyspnea cough sputum or hemoptysis GI: No nausea no vomiting : No dysuria No hematuria Muscle skeletal: no back pain, no neck pain, Neurologic: No numbness no confusion Psych: No stress anxiety Immunology: No splenectomy or history of AIDS (MAGED LAI) Physical Exam Physical Exam General Appearance: well developed/nourished, no apparent distress, alert, awake , comfortable, obese Gastrointestinal: normal bowel sounds, soft, non-tender Comments: Well-developed well-nourished person in no acute distress HEENT: Pupils equally round and reactive to light and accommodation. Nose is atraumatic. Neck: Normal inspection Back: Mild left CVA tenderness. Full range of motion Cardiovascular: Regular rate and rhythms no murmurs rubs or gallops, normal JVP Respiratory: Chest nontender. No respiratory distress.breath sounds clear to auscultation bilaterally Abdomen: Soft, obese/, nontender, nondistended, no appreciable organomegaly. Normal bowel sounds. No ascites Extremity: No edema Neuro: Alert oriented x3 Skin: No appreciable rash on exposed skin, skin is warm and dry. Psych: Mood and affect is normal, memory and judgment is normal. Core Measures ACS in differential dx? No Severe Sepsis Present: No Septic Shock Present: No (MAGED LAI) Progress Differential Diagnosis: hydronephrosis, pyelonephritis, ureterolithiasis, nephrolithiasis Plan of Care: Orders Procedure Date/time Status Add-on Test (ER Only) 10/18 2023 Active CULTURE,URINE 10/18 1942 Active URINALYSIS 10/18 1835 Complete HUMAN BETA HCG TITRE 10/18 1835 Complete COMPREHENSIVE METABOLIC PANEL 10/18 1835 Complete CBC WITHOUT DIFFERENTIAL 10/18 1835 Complete Laboratory Tests 10/18/161942: Urinalysis LIGHT H, Urine Color YEL, Urine Clarity CLEAR, Urine pH 6.5, Ur Specific [place] 1.015, Urine Protein NEG, Urine Ketones NEG, Urine Nitrite NEG, Urine Bilirubin NEG, Urine Urobilinogen 0.2, Ur Leukocyte Esterase SMALL H, Ur Microscopic SEDIMENT EXAMINED, Urine WBC 10-15 H, Ur Epithelial Cells FEW, Urine Hemoglobin NEG, Urine Glucose NEG 10/18/161917: Anion Gap 8, Estimated GFR > 60, BUN/Creatinine Ratio 8.3, Glucose 96, Calcium 9.2, Total Bilirubin 0.4, AST 16, ALT 26, Alkaline Phosphatase 103, Total Protein 6.0 L, Albumin 3.0 L, Globulin 3.0, Albumin/Globulin Ratio 1.0 L, Beta HCG, Quant 61280.0, CBC w Diff NO MAN DIFF REQ, RBC 3.85 L, MCV 86.4, MCH 29.1, RDW 13.4, MPV 7.8, Gran % 81.9 H, Lymphocytes % 11.3 L, Monocytes % 5.8, Eosinophils % 0.7, Basophils % 0.3, Absolute Granulocytes 10.2 H, Absolute Lymphocytes 1.4, Absolute Monocytes 0.7 H, Absolute Eosinophils 0.1, Absolute Basophils 0, PUBS MCHC 33.7 Microbiology 10/18 1942 URINE ROUT: Urine Culture - RECD Diagnostic Imaging: Viewed by Me: CT Scan. Discussed w/RAD: CT Scan. Radiology Impression: PATIENT: SHAUNA BENAVIDEZ PRESENT AGE: 21 PATIENT ACCOUNT NO: [id number] : 93 LOCATION: [facility] ORDERING PHYSICIAN: MAGED HURTADO SERVICE DATE: 10/18/16 EXAM TYPE: US - US-RENAL/KIDNEY EXAMINATION: US RETROPERITONEAL COMPLETE (RENAL) CLINICAL INFORMATION: Left flank pain. COMPARISON: None TECHNIQUE: Real-time imaging of the kidneys and bladder. FINDINGS: RIGHT KIDNEY: 11.1 x 5.8 x 5.1 cm (SAG x AP x TRV). The kidney is normal in size, contour, and echogenicity. Renal cortical thickness is normal. Tiny cyst mid right kidney measuring approximately 0.9 x 0.6 cm. No evidence of stones or hydronephrosis. LEFT KIDNEY: 11.2 x 6.1 x 6 cm (SAG x AP x TRV). The kidney is normal in size, contour, and echogenicity. Renal cortical thickness is normal. Nonobstructing calculus mid to lower left kidney measuring 0.5 x 0.4 cm. No evidence of hydronephrosis. No gross cortical abnormality. BLADDER: Incompletely distended. ureteric jets not demonstrated. Prevoid bladder volume is 57.4 mL. . IMPRESSION: Nonobstructing 0.5 cm calculus mid to lower left kidney. Tiny cyst mid right kidney. Initial ED EKG: none Comments: declines Tylenol on arrival for pain. Patient is alert, oriented, afebrile in no acute distress. Mild left CVA tenderness on exam. No rashes visible. Patient will go for renal ultrasound, transabdominal viability ultrasound. Patient was informed of all lab results and imaging study results. Patient saw afebrile. Urinalysis shows small UTI. Patient will be treated for a urine although previous cultures show no growth after 2 days. She'll be fed on Macrobid. She'll follow-up with urologist in the next several days and also follow up with her STORE CUSTODIAN. Discussed with Dr. Hernandes who agrees with plan. (GEORGE HURTADO,MAGED) Departure Departure Time of Disposition: 2024 Disposition: HOME OR SELF CARE Condition: Stable Clinical Impression Primary Impression: Left flank pain Secondary Impressions: Urinary tract infection Qualifiers: Urinary tract infection type: site unspecified Hematuria presence: without hematuria Qualified Code: N39.0 - Urinary tract infection, site not specified Referrals: DAMIR HIGGINBOTHAM APRN (PCP/Family) Additional Instructions: Follow-up with your STORE CUSTODIAN and with Dr. Marshall as scheduled. Increase fluids. Tylenol [id number] for any pain. Take antibiotics as prescribed to help with UTI. Return for worsening symptoms or concerns. Departure Forms: Customer Survey General Discharge Information Prescriptions: Current Visit Scripts Nitrofurantoin Monohyd/M-Cryst (Macrobid 100 MG Capsule) 1 CAP PO BID #14 CAP with food (MAGED LAI) PA/SMELTER CHARGER Co-Sign Statement Statement: ED Attending supervision documentation- x I saw and evaluated the patient. I have also reviewed all the pertinent lab results and diagnostic results. I agree with the findings and the plan of care as documented in the PA's/SMELTER CHARGER's documentation. [] I have reviewed the ED Record and agree with the PA's/SMELTER CHARGER's documentation. [] Additions or exceptions (if any) to the PAs/SMELTER CHARGER's note and plan are summarized below: [] (KALEN YEBOAH,STEFFANIE)
[2016-10-18 18:45] VITALS: BP 134/85
[2016-10-18 19:24] LABS: ABSOLUTE BASOPHIL COUNT 0 /CUMM (0.0-0.2); ABSOLUTE EOSINOPHIL COUNT 0.1 /CUMM (0.0-0.7); ABSOLUTE GRANULOCYTE CT 10.2 /CUMM (1.4-6.5); ABSOLUTE LYMPH COUNT 1.4 /CUMM (1.2-3.4); ABSOLUTE MONOCYTE COUNT 0.7 /CUMM (0.10-0.60); BASOPHIL % 0.3 % (0.0-2.0); EOSINOPHIL % 0.7 % (0-5); GRANULOCYTE % 81.9 % (42.2-75.2); HEMATOCRIT 33.3 % (37-47); MEAN CORPUSCULAR HGB 29.1 PG (27.0-31.0); MEAN CORPUSCULAR HGB CONC 33.7 G/DL (33.0-37.0); MEAN CORPUSCULAR VOLUME 86.4 FL (81.0-99.0); MEAN PLATELET VOLUME 7.8 FL (7.4-10.4); PLATELET COUNT 270 /CUMM (130-400); RBC DISTRIBUTION WIDTH 13.4 % (11.5-14.5); RED BLOOD CELL CT 3.85 /CUMM (4.20-5.40); WHITE BLOOD CELL COUNT 12.4 /CUMM (4.8-10.8)
--- NOTE | 2016-10-18 19:38 | ULTRASOUND REPORT ---
EXAMINATION: US RETROPERITONEAL COMPLETE (RENAL) CLINICAL INFORMATION: Left flank pain. COMPARISON: None TECHNIQUE: Real-time imaging of the kidneys and bladder. FINDINGS: RIGHT KIDNEY: 11.1 x 5.8 x 5.1 cm (SAG x AP x TRV). The kidney is normal in size, contour, and echogenicity. Renal cortical thickness is normal. Tiny cyst mid right kidney measuring approximately 0.9 x 0.6 cm. No evidence of stones or hydronephrosis. LEFT KIDNEY: 11.2 x 6.1 x 6 cm (SAG x AP x TRV). The kidney is normal in size, contour, and echogenicity. Renal cortical thickness is normal. Nonobstructing calculus mid to lower left kidney measuring 0.5 x 0.4 cm. No evidence of hydronephrosis. No gross cortical abnormality. BLADDER: Incompletely distended. ureteric jets not demonstrated. Prevoid bladder volume is 57.4 mL. . IMPRESSION: Nonobstructing 0.5 cm calculus mid to lower left kidney. Tiny cyst mid right kidney.
--- NOTE | 2016-10-18 19:44 | ULTRASOUND REPORT ---
EXAMINATION: US , VIABILITY CLINICAL INFORMATION: Left flank pain COMPARISON: ultrasound dated 09/10/2016 TECHNIQUE: Limited transabdominal obstetric ultrasound FINDINGS: Single intrauterine demonstrating vertex presentation and longitudinal lie. heart rate 144 bpm. Anterior location of the placenta. Abdominal circumference 26.5 cm corresponding to ultrasound estimated gestational age 30 weeks and 5 days. Head circumference 25.81 cm corresponding to ultrasound estimated gestational age of 28 weeks and 1 day. BPD 7.32 cm (29 weeks and 3 days) Femoral length 5.6 cm (29 weeks and 4 days) IMPRESSION: Single live intrauterine with vertex presentation. Ultrasound estimated gestational age approximately 29 weeks and 4 days. Ultrasound estimated date of delivery 12/30/2016.
[2016-10-18] MEDS ORDERED: MACROBID 100 M100 MG PO (20:28)
== END 2016-10-18 20:33 ==
LOC: ERH 18:13
PROVIDERS: Physician Assistant
DX: O23.43 Unspecified infection of urinary tract in pregnancy, third trimester (principal); Z3A.29 29 weeks gestation of pregnancy
CPT/HCPCS: 76775; 81001; 87086

== ENCOUNTER 2016-10-22 13:43 | Emergency (ER) | payer OTHER ==
--- NOTE | 2016-10-22 16:55 | ED GI/GU/ABDOMINAL COMPLAINT ---
History of Present Illness General Chief Complaint: General Adult Stated Complaint: 8MNTHS PREG VOMITING Source: patient Exam Limitations: no limitations Allergies Coded Allergies: ibuprofen (Severe, HIVES 09/23/16) Reconcile Medications Albuterol Sulfate 2.5 MG/3 ML (0.083 %) VIAL.NEB 1 Vial INH/NAYA PRN ASTHMA ( Reported) Albuterol Sulfate (Proair Hfa) 90 MCG HFA.AER.AD 2 PUF INH Q4-6 PRN PRN RESPIRATORY (Reported) Budesonide/Formoterol Fumarate (Symbicort 160-4.5 Mcg Inhaler) 160 MCG-4.5 MCG/ ACTUATION HFA.AER.AD 2 PUF INH BID ASTHMA (Reported) Nitrofurantoin Monohyd/M-Cryst (Macrobid 100 MG Capsule) 100 MG CAPSULE 1 CAP PO BID uti with food Vit/Iron Fumarate/FA ( Vitamin Formula Tb) 1 EACH TABLET 1 TAB PO DAILY Triage Note: PT PRESENTS TO ER C/O OF N/V. PT STATES SHE IS 8 MONTHS AND KEEP ANYTHING DOWN. PT STATES THIS HAS BEEN ONGOING THROUGHTOUT AND NOW SHES NOT KEEPING FLUIDS DOWN AND OB SENT HER TO ER FOR EVAL PT DUE DATE 01/02/17. PT DENIES ABDOMINAL PAIN AND CRAMPING. PT DENIES VAGINAL DISCHARGE. PT STATES SHE FEELS BABY AND "HE" IS VERY ACTIVE. Triage Nurses Notes Reviewed? yes ? y Is pt currently ? No Onset: Abrupt Duration: day(s): (2) Timing: recent history HPI: 21-year-old female 8 months comes into emergency room for further evaluation of nausea vomiting has been going on for the past 2 days. Denies any diarrhea. Patient reports that mild pressure in her pelvis that has been going on intermittently for over a month and has spoken with her ROLL OFF DRIVER doctor about it. Mild sore throat. Denies any other associated symptoms at this time. Patient reports that she has not been able to keep any fluids down. (YUAN GANDHI) Vital Signs & Intake/Output Vital Signs & Intake/Output Vital Signs Date Time Temp Pulse Resp B/P Pulse O2 O2 Flow FiO2 Ox Delivery Rate 10/22 1827 97.3 74 18 131/7 98 Room Air 10/22 1401 97.3 80 20 119/78 98 Room Air Past History Travel History Traveled to [place] past 21 day No Medical History Any Pertinent Medical History? see below for history Neurological: NONE EENT: NONE Cardiovascular: NONE Respiratory: asthma Gastrointestinal: NONE Hepatic: cholelithiasis Renal: NONE Musculoskeletal: knee pain Psychiatric: depression Endocrine: obesity Blood Disorders: NONE Cancer(s): NONE GARMENT MENDER/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: NONE Tetanus Vaccine: 02/25/16 Surgical History Surgical History: N Psychosocial History Who do you live with Mother What is your primary language Sinhala Tobacco Use: Never used Family History Hx Contributory? No (YUAN GANDHI) Review of Systems Review of Systems Constitutional: Reports: no symptoms. EENTM: Reports: no symptoms. Respiratory: Reports: no symptoms. Cardiovascular: Reports: no symptoms. GI: Reports: no symptoms. Genitourinary: Reports: see HPI. Musculoskeletal: Reports: no symptoms. Skin: Reports: no symptoms. Neurological/Psychological: Reports: no symptoms. Hematologic/Endocrine: Reports: no symptoms. Immunologic/Allergic: Reports: no symptoms. All Other Systems: Reviewed and Negative (YUAN GANDHI) Physical Exam Physical Exam General Appearance: well developed/nourished, no apparent distress, alert, awake Head: atraumatic, normal appearance Eyes: Bilateral: normal appearance. Ears, Nose, Throat, Mouth: hearing grossly normal, moist mucous membrane Neck: normal inspection Respiratory: normal breath sounds, no respiratory distress Cardiovascular: regular rate/rhythm Gastrointestinal: soft, non-tender Back: normal inspection Extremities: normal range of motion Neurologic/Psych: awake, alert, oriented x 3, normal gait Skin: intact, normal color Core Measures ACS in differential dx? No Severe Sepsis Present: No Septic Shock Present: No (YUAN GANDHI) Progress Differential Diagnosis: appendicitis, biliary colic, bowel obstruction, cholecystitis, diverticulitis, gastritis, hepatitis, hernia, kidney stone, ovarian cyst, ovarian torsion, pancreatitis, PID/cervicitis, PUD/GERD, UTI/pyelo Initial ED EKG: none Comments: 10/22/2016 7:57:12 PM Patient is tolerating oral liquids here in the emergency room. Patient feels much better. Case discussed with Dr. Orellana. Patient will follow up with her primary care doctor and ROLL OFF DRIVER doctor. Patient is nontoxic-appearing. In no apparent distress. Clinically looks well. (YUAN GANDHI) Plan of Care: Orders Procedure Date/time Status Add-on Test (ER Only) 10/22 193 Active CULTURE,URINE 10/22 1805 Active THROAT CULTURE W/QUICK STREP 10/22 1653 Active URINALYSIS 10/22 1653 Complete LIPASE 10/22 1653 Complete COMPREHENSIVE METABOLIC PANEL 10/22 1653 Complete CBC WITHOUT DIFFERENTIAL 10/22 1653 Complete Laboratory Tests 10/22/16 180: Urine Color YEL, Urine Clarity CLEAR, Urine pH 7.0, Ur Specific [place] 1.020, Urine Protein TRACE H, Urine Ketones NEG, Urine Nitrite NEG, Urine Bilirubin NEG, Urine Urobilinogen 0.2, Ur Leukocyte Esterase MOD H, Ur Microscopic SEDIMENT EXAMINED, Urine WBC 15-25 H, Ur Epithelial Cells FEW, Urine Hemoglobin NEG, Urine Glucose NEG 10/22/16 1710: Anion Gap 10, Estimated GFR > 60, BUN/Creatinine Ratio 12.0, Glucose 88, Calcium 8.9, Total Bilirubin 0.4, AST 21, ALT 34, Alkaline Phosphatase 135 H, Total Protein 6.6, Albumin 3.3 L, Globulin 3.3, Albumin/Globulin Ratio 1.0 L, Lipase 373 H, CBC w Diff NO MAN DIFF REQ, RBC 4.16 L, MCV 86.4, MCH 28.7, RDW 13.3, MPV 8.2, Gran % 88.4 H, Lymphocytes % 7.5 L, Monocytes % 3.5, Eosinophils % 0.3, Basophils % 0.3, Absolute Granulocytes 11.6 H, Absolute Lymphocytes 1.0 L , Absolute Monocytes 0.5, Absolute Eosinophils 0, Absolute Basophils 0, PUBS MCHC 33.2 Microbiology 10/22 1805 URINE ROUT: Urine Culture - RECD Departure Departure Disposition: HOME OR SELF CARE Condition: Stable Clinical Impression Primary Impression: Nausea and vomiting during Referrals: DAMIR HIGGINBOTHAM APRN (PCP/Family) Additional Instructions: Follow-up with your ROLL OFF DRIVER doctor. Return if any other concerns worsening symptoms. Return if any of abdominal pain and vaginal bleeding or leakage of fluid. Call your ROLL OFF DRIVER immediately. Please go over all results of today's visit with your primary care doctor. Contact your primary care doctor to let them know you were here in the emergency room. There may be nonspecific findings which may not be related to your visit today here in the emergency room but may require further evaluation and chronic monitoring by your primary care doctor. If you had a laceration today the chance of foreign body always remains. You should follow-up with your primary care doctor for recheck in 3-5 days for a wound check. If you had an x-ray done there is a chance that a fracture could have been missed on initial read and you should follow-up with your primary care doctor for repeat x-rays if symptoms persist. If your blood pressure was elevated here in the emergency room please have rechecked by her primary care doctor within the next 48 hours by your primary care doctor. If you were prescribed a narcotic here in the emergency room or any type of controlled substances you're not allowed to drive while taking this medication or operate any type of heavy machinery. Narcotics can make you feel lightheaded dizziness nausea and can cause constipation. You may need to order picker/assembler a stool softener. Thank you for choosing [facility] emergency room. Please return to the emergency room immediately if you have any other concerns worsening of symptoms. Departure Forms: Customer Survey General Discharge Information (YUAN GANDHI) PA/AGRICULTURE RESEARCH DIRECTOR Co-Sign Statement Statement: ED Attending supervision documentation- [X] I saw and evaluated the patient. I have also reviewed all the pertinent lab results and diagnostic results. I agree with the findings and the plan of care as documented in the PA's/AGRICULTURE RESEARCH DIRECTOR's documentation. [X] I have reviewed the ED Record and agree with the PA's/AGRICULTURE RESEARCH DIRECTOR's documentation. [] Additions or exceptions (if any) to the PAs/AGRICULTURE RESEARCH DIRECTOR's note and plan are summarized below: [] (ANASTASIA YEBOAH,YULISSA)
[2016-10-22 17:17] LABS: ABSOLUTE BASOPHIL COUNT 0 /CUMM (0.0-0.2); ABSOLUTE EOSINOPHIL COUNT 0 /CUMM (0.0-0.7); ABSOLUTE GRANULOCYTE CT 11.6 /CUMM (1.4-6.5); ABSOLUTE MONOCYTE COUNT 0.5 /CUMM (0.10-0.60); BASOPHIL % 0.3 % (0.0-2.0); EOSINOPHIL % 0.3 % (0-5); HEMATOCRIT 35.9 % (37-47); MEAN CORPUSCULAR HGB 28.7 PG (27.0-31.0); MEAN CORPUSCULAR HGB CONC 33.2 G/DL (33.0-37.0); MEAN CORPUSCULAR VOLUME 86.4 FL (81.0-99.0); MEAN PLATELET VOLUME 8.2 FL (7.4-10.4); PLATELET COUNT 268 /CUMM (130-400); RBC DISTRIBUTION WIDTH 13.3 % (11.5-14.5); RED BLOOD CELL CT 4.16 /CUMM (4.20-5.40); WHITE BLOOD CELL COUNT 13.2 /CUMM (4.8-10.8)
[2016-10-22 17:22] LABS: GRANULOCYTE % 88.4 % (42.2-75.2)
[2016-10-22 20:08] VITALS: BP 128/76
== END 2016-10-22 20:09 ==
LOC: ERH 13:43
PROVIDERS: Physician Assistant Medical
DX: O21.9 Vomiting of pregnancy, unspecified (principal); Z3A.00 Weeks of gestation of pregnancy not specified
CPT/HCPCS: 81001; 87086; 96361; 96374; J2405

== ENCOUNTER 2016-10-31 15:39 | Emergency (ER) | payer OTHER ==
[~2016-10-31] VITALS: Ht 168.9 cm; Wt 111.1 kg
--- NOTE | 2016-10-31 15:47 | ED GENERAL ADULT ---
History of Present Illness General Chief Complaint: Psychiatric Related Complaint Stated Complaint: BIBA FOR EVAL OF +/23 WKS Source: patient, old records, EMS, police Exam Limitations: no limitations Vital Signs & Intake/Output Vital Signs & Intake/Output Vital Signs Date Time Temp Pulse Resp B/P Pulse O2 O2 Flow FiO2 Ox Delivery Rate 11/01 0626 98.6 78 20 134/56 96 Room Air 10/31 1556 96 10/31 1541 91 18 143/73 97 Room Air ED Intake and Output 11/01 0000 10/31 1200 Intake Total 0 Output Total Balance 0 Intake, Oral 0 Patient 245 lb Weight Allergies Coded Allergies: ibuprofen (Severe, HIVES 09/23/16) Triage Nurses Notes Reviewed? yes HPI: Patient is 31 weeks' and has been having chronic low back pain for the entire per the patient. Patient states that she was recently diagnosed with a kidney stone on the left side as well as a cyst on the right side. Patient states that since yesterday the pain is increased her the pain is constant and is aching in nature. There is no radiation. There are no aggravating or mitigating factors. She rates the pain as 6 out of 10. Today she doesn't of altercation with family and police were called. Patient was subsequently arrested and she told a fasting officer that she was having suicidal thoughts with thoughts of jumping off a bridge. Patient denies any homicidal ideations. Patient does have a history of cutting in the past however there are been no recent attempts. (MADELINE YEBOAH,JHON Tirado) Reconcile Medications Acetaminophen With Codeine (Acetaminophen-Cod #3 Tablet) 300 MG-30 MG TABLET 1 TAB PO BIDP PRN PAIN (Reported) Albuterol Sulfate 2.5 MG/3 ML (0.083 %) VIAL.NEB 1 Vial INH/NAYA PRN ASTHMA ( Reported) Albuterol Sulfate (Proair Hfa) 90 MCG HFA.AER.AD 2 PUF INH Q4-6 PRN PRN RESPIRATORY (Reported) Budesonide/Formoterol Fumarate (Symbicort 160-4.5 Mcg Inhaler) 160 MCG-4.5 MCG/ ACTUATION HFA.AER.AD 2 PUF INH BID ASTHMA (Reported) Vit/Iron Fumarate/FA ( Vitamin Formula Tb) 1 EACH TABLET 1 TAB PO DAILY (JOSE YEBOAH,ADRIEL [place]) Past History Travel History Traveled to [place] past 21 day No Medical History Any Pertinent Medical History? see below for history Neurological: NONE EENT: NONE Cardiovascular: NONE Respiratory: asthma Gastrointestinal: NONE Hepatic: cholelithiasis Renal: NONE Musculoskeletal: knee pain Psychiatric: depression Endocrine: obesity Blood Disorders: NONE Cancer(s): NONE MACHINE HEEL SPRAYER/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: NONE Tetanus Vaccine: 02/25/16 Surgical History Surgical History: non-contributory, N Psychosocial History Who do you live with Mother What is your primary language Omani Tobacco Use: Never used ETOH Use: denies use Illicit Drug Use: denies illicit drug use Family History Hx Contributory? No (MADELINE YEBOAH,JHON Tirado) Review of Systems Review of Systems Constitutional: Reports: no symptoms. EENTM: Reports: no symptoms. Respiratory: Reports: no symptoms. Cardiovascular: Reports: no symptoms. GI: Reports: no symptoms. Genitourinary: Reports: no symptoms. Musculoskeletal: Reports: see HPI, back pain. Skin: Reports: no symptoms. Neurological/Psychological: Reports: see HPI, depressed. Hematologic/Endocrine: Reports: no symptoms. Immunologic/Allergic: Reports: no symptoms. All Other Systems: Reviewed and Negative (MADELINE YEBOAH,JHON Tirado) Physical Exam Physical Exam General Appearance: well developed/nourished, alert, anxious, moderate distress Head: atraumatic, normal appearance Eyes: Bilateral: PERRL, EOMI. Ears, Nose, Throat: normal pharynx, normal ENT inspection, hearing grossly normal Neck: normal inspection, supple, full range of motion, no midline tenderness Respiratory: normal breath sounds, chest non-tender, no respiratory distress, lungs clear Cardiovascular: regular rate/rhythm, normal peripheral pulses Gastrointestinal: normal bowel sounds, soft, non-tender, GRAVID Back: normal inspection, normal range of motion, no vertebral tenderness, NO CVA TENDERNESS Extremities: normal inspection, normal capillary refill, normal range of motion Neurologic/Psych: no motor/sensory deficits, awake, alert, oriented x 3, normal mood/affect, TEARFULL Skin: intact, normal color, warm/dry Lymphatic: no anterior cervical nadiya Core Measures ACS in differential dx? No CVA/TIA Diagnosis: No Severe Sepsis Present: No Septic Shock Present: No (MADELINE YEBOAH,JHON Tirado) Progress Differential Diagnoses I considered the following diagnoses in my evaluation of the patient: [UTI, ELECTROLYTE ABNORMALITY, MISCARRIAGE, SUICIDAL IDEATIONS] Plan of Care: Orders Procedure Date/time Status Regular Diet 11/01 B Active Continuous Observation Monitor 11/01 0730 Active Continuous Observation Monitor 10/31 154 Active URINE DRUGS OF ABUSE 10/31 154 Complete URINALYSIS 10/31 154 Complete ETHANOL 10/31 154 Complete COMPREHENSIVE METABOLIC PANEL 10/31 154 Complete CBC WITHOUT DIFFERENTIAL 10/31 154 Complete ED CRISIS PSYCH CONSULT 10/31 154 Active Laboratory Tests 10/31/16 1859: Urine Opiates Screen < 100.00, Methadone Screen < 40, Barbiturate Screen < 60, Ur Phencyclidine Scrn < 6.00, Amphetamines Screen < 100, U Benzodiazepines Scrn < 85, Urine Cocaine Screen < 50, Urine Cannabis Screen < 5.00, Urinalysis MOD H , Urine Color YEL, Urine Clarity CLEAR, Urine pH 7.5, Ur Specific [place] 1.015, Urine Protein TRACE H, Urine Ketones NEG, Urine Nitrite NEG, Urine Bilirubin NEG, Urine Urobilinogen 0.2, Ur Leukocyte Esterase MOD H, Ur Microscopic SEDIMENT EXAMINED, Urine WBC 3-5 H, Ur Epithelial Cells FEW, Urine Hemoglobin NEG, Urine Glucose NEG 10/31/16 1607: Anion Gap 9, Estimated GFR > 60, BUN/Creatinine Ratio 8.0, Glucose 85, Calcium 8.7, Total Bilirubin 0.3, AST 17, ALT 27, Alkaline Phosphatase 137 H, Total Protein 6.6, Albumin 3.3 L, Globulin 3.3, Albumin/Globulin Ratio 1.0 L, CBC w Diff NO MAN DIFF REQ, RBC 4.14 L, MCV 85.5, MCH 28.8, RDW 13.7, MPV 8.5, Gran % 84.6 H, Lymphocytes % 9.2 L, Monocytes % 5.0, Eosinophils % 0.6, Basophils % 0.6, Absolute Granulocytes 11.2 H, Absolute Lymphocytes 1.2, Absolute Monocytes 0.7 H, Absolute Eosinophils 0.1, Absolute Basophils 0.1, PUBS MCHC 33.7, Serum Alcohol < 10.0 Diagnostic Imaging: Viewed by Me: Ultrasound. Discussed w/RAD: Ultrasound. Radiology Impression: PATIENT: SHAUNA BENAVIDEZ PRESENT AGE: 21 PATIENT ACCOUNT NO: [id number] : 93 LOCATION: [facility] ORDERING PHYSICIAN: JHON CORREA MD SERVICE DATE: 10/31/166110 EXAM TYPE: US - US- VIABILITY EXAMINATION: US , VIABILITY CLINICAL INFORMATION: 31 week patient with increased back pains. Previous ultrasound from 07/11/2016 had establish an estimated date of delivery of 01/02/2017. Evaluate viability. COMPARISON: viability ultrasound dated 10/18/2016 TECHNIQUE: Focused ultrasound of the was performed for viability check. No anatomic survey of the fetus was obtained. FINDINGS: A single live intrauterine gestation is identified in vertex presentation with a positive heartbeat of 144 bpm to 162 bpm. The placenta is anterior in location with the placental edge being away from the cervix. The cervical length the following is approximately 6 cm. The following dating parameters are obtained: BPD 7.9 cm equals 31 weeks 5 days. Head circumference 28.6 cm equals 31 weeks 3 days. Abdominal circumference 28.0 cm equals 32 weeks 1 day. Femur length 5.1 cm equals 27 weeks 3 days. These dates year old an average gestational age of 30 weeks and 5 days with an estimated date of delivery of 01/04/2017. These dates match the originally identified dates of 29 weeks 4 days and estimated date of delivery of 12/30/2016. Estimated weight is 1589 g +/- 2 132 g (3 lbs. 8 oz. (+/- 8 ounces). Head circumference to abdominal circumference ratio is 1.02. Dedicated anatomic survey was not performed. Amniotic fluid volume is not adequately assessed. IMPRESSION: Single live intrauterine gestation is identified in vertex presentation with a positive heartbeat of 144 to 162 bpm. Adequate interval growth is seen as discussed above. DICTATED BY: ZACHARY ESPINOZA MD DATE/TIME DICTATED:10/31/161656 FINANCIAL REPORTING SPECIALIST:NIKOLE DATE/TIME TRANSCRIBED:10/31/161656 CONFIDENTIAL, DO NOT COPY WITHOUT APPROPRIATE AUTHORIZATION. <Electronically signed in Other Vendor System> SIGNED BY: ZACHARY ESPINOZA MD 10/31/16 1710 Initial ED EKG: none Hand-Off Endorsed To: RENO SOLANO MD Endorsed Time: 2300 Pending: consult (CRISIS RE-EVAL) (MADELINE YEBOAH,JHON Tirado) Hand-Off Endorsed To: ADIREL GARCIA MD Endorsed Time: 0700 Pending: consult (DORIAN YEBOAH,RENO Posada) Comments: 11/01/2016 07:00 pt signed out to me by dr solano. (JOSE YEBOAH,ADRIEL [place]) Departure Departure Disposition: STILL A PATIENT Condition: Stable Clinical Impression Primary Impression: Depression Referrals: DAMIR HIGGINBOTHAM APRN (PCP/Family) Departure Forms: Customer Survey General Discharge Information (MADELINE YEBOAH,HJON Tirado) Departure Additional Instructions: iop tomorrow at 9:30am (JOSE YEBOAH,ADRIEL [place]) Critical Care Note Critical Care Note Critical Care Time: non-applicable (JHON CORREA MD)
[2016-10-31 16:16] LABS: ABSOLUTE BASOPHIL COUNT 0.1 /CUMM (0.0-0.2); ABSOLUTE EOSINOPHIL COUNT 0.1 /CUMM (0.0-0.7); ABSOLUTE GRANULOCYTE CT 11.2 /CUMM (1.4-6.5); ABSOLUTE LYMPH COUNT 1.2 /CUMM (1.2-3.4); ABSOLUTE MONOCYTE COUNT 0.7 /CUMM (0.10-0.60); BASOPHIL % 0.6 % (0.0-2.0); EOSINOPHIL % 0.6 % (0-5); HEMATOCRIT 35.4 % (37-47); MEAN CORPUSCULAR HGB 28.8 PG (27.0-31.0); MEAN CORPUSCULAR HGB CONC 33.7 G/DL (33.0-37.0); MEAN CORPUSCULAR VOLUME 85.5 FL (81.0-99.0); MEAN PLATELET VOLUME 8.5 FL (7.4-10.4); PLATELET COUNT 275 /CUMM (130-400); RBC DISTRIBUTION WIDTH 13.7 % (11.5-14.5); RED BLOOD CELL CT 4.14 /CUMM (4.20-5.40); WHITE BLOOD CELL COUNT 13.3 /CUMM (4.8-10.8)
[2016-10-31 16:38] LABS: GRANULOCYTE % 84.6 % (42.2-75.2)
--- NOTE | 2016-10-31 17:10 | ULTRASOUND REPORT ---
EXAMINATION: US , VIABILITY CLINICAL INFORMATION: 31 week patient with increased back pains. Previous ultrasound from 07/11/2016 had establish an estimated date of delivery of 01/02/2017. Evaluate viability. COMPARISON: viability ultrasound dated 10/18/2016 TECHNIQUE: Focused ultrasound of the was performed for viability check. No anatomic survey of the fetus was obtained. FINDINGS: A single live intrauterine gestation is identified in vertex presentation with a positive heartbeat of 144 bpm to 162 bpm. The placenta is anterior in location with the placental edge being away from the cervix. The cervical length the following is approximately 6 cm. The following dating parameters are obtained: BPD 7.9 cm equals 31 weeks 5 days. Head circumference 28.6 cm equals 31 weeks 3 days. Abdominal circumference 28.0 cm equals 32 weeks 1 day. Femur length 5.1 cm equals 27 weeks 3 days. These dates year old an average gestational age of 30 weeks and 5 days with an estimated date of delivery of 01/04/2017. These dates match the originally identified dates of 29 weeks 4 days and estimated date of delivery of 12/30/2016. Estimated weight is 1589 g +/- 2 132 g (3 lbs. 8 oz. (+/- 8 ounces). Head circumference to abdominal circumference ratio is 1.02. Dedicated anatomic survey was not performed. Amniotic fluid volume is not adequately assessed. IMPRESSION: Single live intrauterine gestation is identified in vertex presentation with a positive heartbeat of 144 to 162 bpm. Adequate interval growth is seen as discussed above.
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
[2016-11-01] MEDS ORDERED: ACETAMINOPHEN-1 EAC3 PO (08:21)
[2016-11-01 08:29] VITALS: BP 120/70
== END 2016-11-01 08:35 ==
LOC: ERH 15:39
PROVIDERS: Emergency Medicine
DX: O99.343 Other mental disorders complicating pregnancy, third trimester (principal); Z3A.31 31 weeks gestation of pregnancy; M54.5 Low back pain; N20.0 Calculus of kidney
CPT/HCPCS: 80307; 81001; 96372; G0463; G0480; J2405; J3101

== ENCOUNTER 2016-11-29 14:13 | Emergency (ER) | payer OTHER ==
[~2016-11-29] VITALS: Ht 167.6 cm; Wt 113.4 kg
[~2016-11-29 14:13] MED LIST changes: +ACETAMINOPHEN-1 EAC3 PO
--- NOTE | 2016-11-29 15:19 | ULTRASOUND REPORT ---
EXAMINATION: US RETROPERITONEAL COMPLETE (RENAL) CLINICAL INFORMATION: Evaluate for hydronephrosis. Clinical concern regarding kidney stone. The patient is 35 weeks . COMPARISON: None TECHNIQUE: Real-time imaging of the kidneys and bladder. FINDINGS: RIGHT KIDNEY: 13.0 x 4.2 x 6.2 cm (SAG x AP x TRV). There is no significant dilation of the intrarenal collecting system on the right. Renal cortical thickness is normal. No shadowing calculus. No definite solid mass. There is an approximately 1 cm round nearly anechoic structure with a sharp back wall and possible mild enhancement in the mid renal cortex. This could represent a small cyst No perinephric collection LEFT KIDNEY: 11.4 x 6.4 x 5.5 cm (SAG x AP x TRV). No dilation of the intrarenal collecting system. Renal cortical thickness is normal. No suspicious solid mass. No perinephric collection. There is a 0.5 cm bright reflector in the central sinus of the lower left kidney without definite shadowing There is an adjacent 0.4 cm bright reflector with probable shadowing also in the lower pole. There was a 0.5 cm bright reflector in the lower pole on 10/18/16 BLADDER: The bladder is not well-distended. The gravid uterus was not examined. Bilateral ureteral jets are demonstrated. IMPRESSION: No dilation of the urinary collecting system to suggest obstruction on either side There are 2 bright reflectors in the lower pole the left kidney which may represent nonobstructing calculi. The larger measures 0.5 cm There is no perinephric collection The gravid uterus was not examined.
--- NOTE | 2016-11-29 15:22 | ED GI/GU/ABDOMINAL COMPLAINT ---
History of Present Illness General Chief Complaint: General Adult Stated Complaint: SENT BY DR DELAROSA FOR US OF KIDNEYS 35 WKS PREG Source: patient, old records Exam Limitations: no limitations Vital Signs & Intake/Output Vital Signs & Intake/Output ED Intake and Output 11/30 0000 11/29 1200 Intake Total Output Total Balance Patient 250 lb Weight Allergies Coded Allergies: ibuprofen (Severe, HIVES 11/29/16) Reconcile Medications Albuterol Sulfate 2.5 MG/3 ML (0.083 %) VIAL.NEB 1 Vial INH/NAYA PRN ASTHMA ( Reported) Albuterol Sulfate (Proair Hfa) 90 MCG HFA.AER.AD 2 PUF INH Q4-6 PRN PRN RESPIRATORY (Reported) Budesonide/Formoterol Fumarate (Symbicort 160-4.5 Mcg Inhaler) 160 MCG-4.5 MCG/ ACTUATION HFA.AER.AD 2 PUF INH BID ASTHMA (Reported) Lurasidone HCl (Latuda) 40 MG TABLET 1 TAB PO QPM MENTAL HEALTH (Reported) Pnv With Ca,No.72/Iron/FA ( Plus Tablet) 27 MG IRON-1 MG TABLET 1 TAB PO QPM (Reported) Triage Note: PT TO TRIAGE FOR LEFT FLANK PAIN AND UPPER ABD PAIN FOR 2 NIGHT. PT STATES SHE HAS A HX OF KIDNEY STONES AND THIS FEELS SIMILAR DR DELAROSA SENT PT IS FOR [facility]. PT IS 35 WEEKS , DUE 01/02/17, . DENIES FEVERS. DENIES N/V/D. PT HAS HAD HUMAIRA WING CONTRACTIONS PER OB FOR 2 WEEKS. DENIES VAGINAL BLEEDING Triage Nurses Notes Reviewed? yes ? Y Is pt currently ? No HPI: 21-year-old female who is 35 weeks presents with bilateral flank pain left greater than right that is been intermittent the last few weeks but getting worse over the last [address] Delarosa in the office today for this who sent her to the ER for further evaluation for an ultrasound. She denies any urinary symptoms. She denies any fever or flulike illness no nausea no vomiting. Her has been uncomfortable. As far. She is . She is taking Tylenol for the pain without relief. Currently she is in mild to moderate pain, left flank, sharp. (EVETTE HURTADO,GIBSON) Past History Travel History Traveled to [place] past 21 day No Medical History Any Pertinent Medical History? 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 No (GIBSON BOWSER) Review of Systems Review of Systems Constitutional: Reports: see HPI. EENTM: Reports: no symptoms. Respiratory: Reports: no symptoms. Cardiovascular: Reports: no symptoms. GI: Reports: no symptoms. Genitourinary: Reports: see HPI. Denies: discharge, dysuria, frequency, hematuria. Musculoskeletal: Reports: no symptoms. Skin: Reports: no symptoms. Neurological/Psychological: Reports: no symptoms. Hematologic/Endocrine: Reports: no symptoms. Immunologic/Allergic: Reports: no symptoms. All Other Systems: Reviewed and Negative (GIBSON BOWSER) Physical Exam Physical Exam Gastrointestinal: normal bowel sounds, OBESE, GRAVID mILD LEFT-SIDED cva TENDERNESS Comments: Well-developed well-nourished no apparent distress. HEENT: Atraumatic, extraocular motion intact Neck: Supple, no lymphadenopathy Back: Nontender Heart: Regular rate and rhythm murmur Respiratory: No respiratory distress clear to auscultation bilateral. Extremities: No edema, full range of motion Neuro: Alert and oriented x3 Psych: Mood affect normal, normal memory normal judgment. Skin: Warm and dry, no rash on exposed skin Core Measures ACS in differential dx? No Severe Sepsis Present: No Septic Shock Present: No (GIBSON BOWSER) Progress Differential Diagnosis: AAA, AMI, appendicitis, biliary colic, bowel obstruction , colon cancer, cholecystitis, diverticulitis, ectopic , endometritis, esophageal varices, gastritis, hepatitis, hernia, hemorrhoids, ischemic bowel, inflamm bowel dis, intrauterine , kidney stone, Lisbet-Patricia tear, ovarian cyst, ovarian torsion, pancreatitis, PID/cervicitis, peptic ulcer, PUD/ GERD, perforated viscous, SBO, threatened AB, UTI/pyelo Plan of Care: Orders Procedure Date/time Status URINALYSIS 11/29 1432 Complete Laboratory Tests 11/29/16 1511: Urine Color YEL, Urine Clarity CLEAR, Urine pH 7.0, Ur Specific [place] 1.015, Urine Protein NEG, Urine Ketones NEG, Urine Nitrite NEG, Urine Bilirubin NEG, Urine Urobilinogen 0.2, Ur Leukocyte Esterase MOD H, Ur Microscopic SEDIMENT EXAMINED, Urine RBC RARE, Urine WBC 5-10 H, Ur Epithelial Cells MOD H, Urine Bacteria MOD H, Urine Hemoglobin NEG, Urine Glucose NEG Initial ED EKG: none Comments: Ultrasound is unremarkable. Discussed with patient, discussed with Dr. Gibson Martinez, recommend Tylenol or Tylenol with Codeine(which patient already has) for pain. Likely this is mechanical low back pain, likely related to her . Recommend warm compresses and following up as scheduled DW Dr Barahona (GIBSON BOWSER) Departure Departure Disposition: HOME OR SELF CARE Condition: Stable Clinical Impression Primary Impression: Back pain Qualifiers: Back pain location: thoracic back pain Chronicity: acute Back pain laterality: left Qualified Code: M54.6 - Pain in thoracic spine Referrals: DAMIR HIGGINBOTHAM APRN (PCP/Family) CONRAD YEBOAH,GEMMA Kaba Additional Instructions: Take Tylenol or Tylenol with Codeine for pain. Warm compresses to your back. Follow-up with GI TECHNICIAN doctor as scheduled Departure Forms: Customer Survey General Discharge Information (GIBSON BOWSER) PA/MONORAIL HOOKER Co-Sign Statement Statement: ED Attending supervision documentation- [X] I saw and evaluated the patient. I have also reviewed all the pertinent lab results and diagnostic results. I agree with the findings and the plan of care as documented in the PA's/MONORAIL HOOKER's documentation. [] I have reviewed the ED Record and agree with the PA's/MONORAIL HOOKER's documentation. [] Additions or exceptions (if any) to the PAs/MONORAIL HOOKER's note and plan are summarized below: [] (ADRIEL BARAHONA DO
[2016-11-29] MEDS ORDERED: LATUDA40 M1 PO (15:35)
[2016-11-29] MEDS ORDERED: PRENATAL PLUS1 EAC1 PO (15:36)
[2016-11-29 16:14] VITALS: BP 132/64
== END 2016-11-29 16:16 ==
LOC: ERH 14:13
DX: O99.89 Other specified diseases and conditions complicating pregnancy, childbirth and the puerperium (principal); M54.9 Dorsalgia, unspecified; Z3A.35 35 weeks gestation of pregnancy
CPT/HCPCS: 76775; 81001; G0463

== ENCOUNTER 2016-12-10 17:47 | Inpatient (IN) | payer OTHER ==
[~2016-12-10] VITALS: Ht 168.9 cm; Wt 118.8 kg
[~2016-12-10 17:47] MED LIST changes: +LATUDA40 M1 PO; +PRENATAL PLUS1 EAC1 PO
--- NOTE | 2016-12-10 20:22 | History & Physical ---
General Information and HPI MD Statement: I have seen and personally examined SHAUNA BENAVIDEZ and documented this H&P. The patient is a 21 year old female at [36] weeks and [5] days gestation who presented with a chief complaint of [SROM CLEAR FLUID]. Source of Information: patient, old records Exam Limitations: no limitations History of Present Illness: 21 LMP UNKN JANE 01/02/2017 BY 10 WK U/S IS ADMITTED WITH SROM TODAY @ 16: 00 CLEAR FLUID Issues for this 1.) BMI 41 INITIAL VISIT NOW @ 45 NL GTT, NL TESTING WEEKLY, NEG SHOULDER SCREEN @ 36 WKS 2.) DEPRESSION STABLE LATUDA 40 mg/D 3,) ASTHMA SIMBICORT BID - PRN VENTOLIN 4.) + GR B STR 5.) BILAT MAT HYDRONEPHROSIS Allergies/Medications Allergies: Coded Allergies: ibuprofen (Severe, HIVES 12/10/16) Home Med list Albuterol Sulfate 2.5 MG/3 ML (0.083 %) VIAL.NEB 1 Vial INH/NAYA PRN ASTHMA ( Reported) Albuterol Sulfate (Proair Hfa) 90 MCG HFA.AER.AD 2 PUF INH Q4-6 PRN PRN RESPIRATORY (Reported) Budesonide/Formoterol Fumarate (Symbicort 160-4.5 Mcg Inhaler) 160 MCG-4.5 MCG/ ACTUATION HFA.AER.AD 2 PUF INH BID ASTHMA (Reported) Lurasidone HCl (Latuda) 40 MG TABLET 1 TAB PO QPM MENTAL HEALTH (Reported) Pnv With Ca,No.72/Iron/FA ( Plus Tablet) 27 MG IRON-1 MG TABLET 1 TAB PO QPM (Reported) Compliance With Home Meds: GOOD Past History director organizational History : 1 Para: 0 Last Menstrual Period: UNKN Estimated Delivery Date: 01/02/2017 Past director organizational History: none Medical History Blood Transfusion Hx: No Neurological: NONE EENT: NONE Cardiovascular: NONE Respiratory: asthma Gastrointestinal: NONE Hepatic: cholelithiasis Renal: nephrolithiasis Musculoskeletal: knee pain Psychiatric: depression Endocrine: obesity, BMI > 40 Blood Disorders: NONE Cancer(s): NONE 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 Home Who Do You Live With? self Primary Language: Zambian Smoking Status: Never Smoked ETOH Use: denies use Illicit Drug Use: denies illicit drug use Review of Systems Review of Systems: NEG FOR CARDIAC, PULMONARY GI COMPLAINTS Exam & Diagnostic Data Last 24 Hrs of Vital Signs/I&O T 98.5 P 82 R 16 BP 122/72 PO2 99 % RA Obstetric Exam Wgt Gained During : 24 Pelvimetry: SHOULD BE ADEQUATE FOR AVGE SIZED BABY Dilation (cm): 1 Effacement (%): 60 Station: -1 Membranes: SROM Fluid: clear Fundal Height (cm): 36 Multiple Gestation? No Contractions: IRREG Infant #1 - FHR Baseline: 130 Category: 1 Estimated Weight: 6# 7oz Presentation: VTX Patient for Induction? Yes Momin Score Momin Score Response Value Cervix Position: mid-position 1 Cervix Consistency: soft 2 Cervix Effacement: 60-70% 2 Cervix Dilation: 1-2 cm 1 Cervix Station: -1 2 Total 8 Physical Exam General Appearance Alert, Oriented X3, Cooperative, No Acute Distress Skin No Significant Lesion Cardiovascular Regular Rate Lungs Normal Air Movement Abdomen Normal Bowel Sounds, Soft, No Tenderness, No Hepatospenomegaly, UTERUS NONTENDER 37 CM VTX 130'S CAT 1 IRREG CONTRACTIONS Neurological Normal Gait, Normal Speech Extremities No Tenderness/Swelling 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 (FEMALE) Normal female genitalia Labs Blood Type & Rh: A+ Antibody Screen: N Hct/Hgb & Platelets #1: 13.2/41.6, PLTS 233,000 Hct/Hgb & Platelets #2: 12.1/38.6 251,000 Rubella: I VDRL #1: N VDRL #2: N HbsAg: N HIV #1: N HIV #2 N 1 Hr P 3 Hr PG: NA Group B Strep: + URINE Initial Ultrasound: 10 WKS 06/06/2016 JANE 01/02/2017 Anatomy Ultrasound: 08/27/2107 21 5/ WKS MALE NL ANATOMY Ultrasound for EFW: 12/05/2016 S=D=U/S 74% 6# 7OZ NL EYAD BPP 8/8 NL UMB DOPPLER Genetic Testing: NL NT - NL MSAFP Last 24 Hrs of Labs/Waldo: Laboratory Tests 12/10/16 1940: CBC w Diff NO MAN DIFF REQ, RBC 4.33, MCV 84.1, MCH 28.1, RDW 13.6, MPV 9.3, Gran % 82.3 H, Lymphocytes % 11.9 L, Monocytes % 4.8, Eosinophils % 0.6, Basophils % 0.4, Absolute Granulocytes 11.6 H, Absolute Lymphocytes 1.7, Absolute Monocytes 0.7 H, Absolute Eosinophils 0.1, Absolute Basophils 0.1, PUBS MCHC 33.4 12/10/16 1805: Membrane Rupture POSITIVE 12/10/16 1800: Urine Color YEL, Urine Clarity CLEAR, Urine pH 7.0, Ur Specific [place] 1.010, Urine Protein TRACE H, Urine Ketones NEG, Urine Nitrite NEG, Urine Bilirubin NEG, Urine Urobilinogen 0.2, Ur Leukocyte Esterase NEG, Ur Microscopic SEDIMENT EXAMINED, Urine RBC RARE, Urine WBC 3-5 H, Ur Epithelial Cells FEW, Urine Bacteria MANY H, Urine Hemoglobin TRACE-INTACT, Urine Glucose NEG Assessment/Plan Assessment/Plan: IUP @ 36 + WKS W/ SROM. CURRENT BMI 45, NEG SHOULDER SCREEN. ON LATUDA FOR H/O DEPRESSION AND VENTOLIN/ SYMBICORT FOR ASTHMA GR B STR + PLAN ADMIT IV PCN PROTOCAL MISO X 1 THIS PM CONTINUE LATUDA AND INHALERS ALPS TO PREVENT DVT As Ranked By This Provider Problem List: 1. 2. Mood disorder 3. BMI 45.0-49.9, adult 4. Depressed 5. Mother positive for group B Streptococcus colonization 6. Asthma affecting , antepartum Core Measures/Miscellaneous Aviles Catheter Still Needed? No Venous Thromboembolism VTE Risk Factors: Obesity, / VTE Contraindications: Active Bleeding (FALL RISK) VTE Diagnosis: No Beta Dinah Is Beta Dinah a Home Med? No If No, Why Not? N/A Antibiotics Is Patient on Antibiotics? Yes If Yes: prophylaxis Attending MD Review Statement Attending Statement Attending MD Statement: examined this patient, discussed with family, reviewed EMR data (avail), discussed w/nursing Attending Assessment/Plan: Taylor MARTINES MD
[2016-12-10 20:25] LABS: ABSOLUTE BASOPHIL COUNT 0.1 /CUMM (0.0-0.2); ABSOLUTE EOSINOPHIL COUNT 0.1 /CUMM (0.0-0.7); ABSOLUTE GRANULOCYTE CT 11.6 /CUMM (1.4-6.5); ABSOLUTE LYMPH COUNT 1.7 /CUMM (1.2-3.4); ABSOLUTE MONOCYTE COUNT 0.7 /CUMM (0.10-0.60); BASOPHIL % 0.4 % (0.0-2.0); EOSINOPHIL % 0.6 % (0-5); GRANULOCYTE % 82.3 % (42.2-75.2); HEMATOCRIT 36.5 % (37-47); MEAN CORPUSCULAR HGB 28.1 PG (27.0-31.0); MEAN CORPUSCULAR HGB CONC 33.4 G/DL (33.0-37.0); MEAN CORPUSCULAR VOLUME 84.1 FL (81.0-99.0); MEAN PLATELET VOLUME 9.3 FL (7.4-10.4); PLATELET COUNT 261 /CUMM (130-400); RBC DISTRIBUTION WIDTH 13.6 % (11.5-14.5); RED BLOOD CELL CT 4.33 /CUMM (4.20-5.40); WHITE BLOOD CELL COUNT 14.1 /CUMM (4.8-10.8)
[2016-12-11 01:48] VITALS: BP 121/74
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
--- NOTE | 2016-12-11 13:57 | PN- OBGYN ---
Surgical Brief Attending Note Brief Attending Note: pt comfortable with epidural VSSAF [id number] cat 1 TOCOqq1-2 min cvx: 3/80/-2 36+6 weeks. PROM. no cervical change. Due to high resting uterine tone and frequency of contractions, unable to augment with pitocin. FHR overall reassuring. Will continue to observe.GBS prophylaxis
--- NOTE | 2016-12-11 18:32 | PN- OBGYN ---
Surgical Brief Attending Note Brief Attending Note: pt examined by RN around 1744 and found to be 4-5cm. FSE and IUPC came out when pt beared down for BM. Now no contractions picking up with external toco.FHR tracing cat 1-2 Now c/o increased back pain VS138/84 toco previously q 1.5-3 -4 min but not picking up since 1729 [id number], +STV, decrease LTV cvx5-6/90/-1 a/p 36+6. PROM. Now cervical change noted. Continues to have dysfunctional uterine pattern. Pitocin as needed if inadequate labor. continue GBS prophylaxis. Epidural bolus prn.
--- NOTE | 2016-12-11 20:03 | PN- OBGYN ---
Surgical Brief Attending Note Brief Attending Note: When last evaluated. pt previously made cervical change from 3 cm to 5 cm. However her IUPC had come out. On my exam at 1830 she was 5 cm and I placed the intrauterine pressure catheter. Shortly afterward her contractions were not picking up with the internal monitor. Examination was deferred to replace catheter as she had made cervical change and plan was continue to monitor tracing. Nurse called at approximately 1915 and had reported possible late decelerations. Overall minimal contractions were noted however she had 3 contractions after which late decelerations were noted. Oxygen applied and improved variability was noted. heart rate has creeped up 265 bpm baseline. I examined the patient and she was still found to be 5 [address] to [address] a fourth intrauterine pressure catheter was unsuccessful. Multiple attempts were made however I could not correctly placed catheter. Due to inability to monitor her contractions accurately and the possibility of late decelerations, inability to augment with Pitocin, and no cervical change for the last 2-1/2 hours I advised a section. The patient was in agreement. Risks, benefits, alternatives were discussed with the patient prior to proceeding including the risk of bleeding, infection, possible injury to other organs or fetus. She stated verbal understanding of all the above and desires to proceed.
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
[2016-12-12 08:35] LABS: ABSOLUTE BASOPHIL COUNT 0 /CUMM (0.0-0.2); ABSOLUTE EOSINOPHIL COUNT 0 /CUMM (0.0-0.7); ABSOLUTE MONOCYTE COUNT 1.1 /CUMM (0.10-0.60); EOSINOPHIL % 0 % (0-5)
[2016-12-12 09:34] LABS: ABSOLUTE GRANULOCYTE CT 16.8 /CUMM (1.4-6.5); ABSOLUTE LYMPH COUNT 1.3 /CUMM (1.2-3.4); BASOPHIL % 0.1 % (0.0-2.0); HEMATOCRIT 31.6 % (37-47); MEAN CORPUSCULAR HGB 28.4 PG (27.0-31.0); MEAN CORPUSCULAR HGB CONC 33.5 G/DL (33.0-37.0); MEAN CORPUSCULAR VOLUME 84.8 FL (81.0-99.0); MEAN PLATELET VOLUME 9.6 FL (7.4-10.4); PLATELET COUNT 221 /CUMM (130-400); RBC DISTRIBUTION WIDTH 13.8 % (11.5-14.5); RED BLOOD CELL CT 3.73 /CUMM (4.20-5.40); WHITE BLOOD CELL COUNT 19.2 /CUMM (4.8-10.8)
[2016-12-12 10:24] LABS: GRANULOCYTE % 87.2 % (42.2-75.2)
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
== END 2016-12-12 16:50 | disposition short-term general hospital (02) | DRG 540 ==
LOC: CBCO 17:47 → GNO 18:35
PROVIDERS: Obstetrics & Gynecology; ADMIT Obstetrics & Gynecology
PROC: 10D00Z1 Extraction of Products of Conception, Low, Open Approach (ICD-10-PCS; principal; 2016-12-11)
DX: O76 Abnormality in fetal heart rate and rhythm complicating labor and delivery (principal); Z68.42 Body mass index [BMI] 45.0-49.9, adult; O99.214 Obesity complicating childbirth; O62.1 Secondary uterine inertia; O42.913 Preterm premature rupture of membranes, unspecified as to length of time between rupture and onset of labor, third trimester; Z3A.36 36 weeks gestation of pregnancy; Z37.0 Single live birth; O99.824 Streptococcus B carrier state complicating childbirth; J45.909 Unspecified asthma, uncomplicated; O99.52 Diseases of the respiratory system complicating childbirth
CPT/HCPCS: GNOP; 81001; 84112; 87086; 88307; 90853; G0463; G0463-25; J0131; J0690; J1170; J1650; J2210; J3490; J7120

== ENCOUNTER 2017-03-01 16:49 | Inpatient (IN) | payer OTHER ==
[~2017-03-01] VITALS: Ht 167.6 cm; Wt 110.2 kg
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
--- NOTE | 2017-03-01 16:50 | NUR ---
SECURITY AT BEDSIDE FOR WANDING PT CHANGED INTO BLUE SCRUBS
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
--- NOTE | 2017-03-01 17:40 | NUR ---
DR OCONNOR AT BEDSIDE
--- NOTE | 2017-03-01 18:06 | NUR ---
PT SITTING ON FLOOR IN ROOM. FLAT AFFECT. PT REFUSING OFFER OF BLANKET OR ANYTHING ELSE TO MAKE HER MORE COMFORTABLE. VITALS TAKEN
[2017-03-01 18:09] LABS: ABSOLUTE BASOPHIL COUNT 0 /CUMM (0.0-0.2); ABSOLUTE EOSINOPHIL COUNT 0 /CUMM (0.0-0.7); ABSOLUTE GRANULOCYTE CT 8.5 /CUMM (1.4-6.5); ABSOLUTE LYMPH COUNT 1.1 /CUMM (1.2-3.4); ABSOLUTE MONOCYTE COUNT 0.5 /CUMM (0.10-0.60); BASOPHIL % 0.4 % (0.0-2.0); EOSINOPHIL % 0.4 % (0-5); GRANULOCYTE % 83.2 % (42.2-75.2); HEMATOCRIT 35.1 % (37-47); MEAN CORPUSCULAR HGB 24.6 PG (27.0-31.0); MEAN CORPUSCULAR HGB CONC 32.6 G/DL (33.0-37.0); MEAN CORPUSCULAR VOLUME 75.5 FL (81.0-99.0); MEAN PLATELET VOLUME 8.4 FL (7.4-10.4); PLATELET COUNT 300 /CUMM (130-400); RBC DISTRIBUTION WIDTH 15.1 % (11.5-14.5); RED BLOOD CELL CT 4.65 /CUMM (4.20-5.40); WHITE BLOOD CELL COUNT 10.2 /CUMM (4.8-10.8)
--- NOTE | 2017-03-01 18:32 | History & Physical ---
General Information and HPI Allergies/Medications Allergies: Coded Allergies: ibuprofen (Severe, HIVES 12/10/16) Home Med list Albuterol Sulfate 2.5 MG/3 ML (0.083 %) VIAL.NEB 1 Vial INH/NAYA PRN ASTHMA ( Reported) Albuterol Sulfate (Proair Hfa) 90 MCG HFA.AER.AD 2 PUF INH Q4-6 PRN PRN RESPIRATORY (Reported) Budesonide/Formoterol Fumarate (Symbicort 160-4.5 Mcg Inhaler) 160 MCG-4.5 MCG/ ACTUATION HFA.AER.AD 2 PUF INH BID ASTHMA (Reported) Lurasidone HCl (Latuda) 40 MG TABLET 1 TAB PO QPM MENTAL HEALTH (Reported) Pnv With Ca,No.72/Iron/FA ( Plus Tablet) 27 MG IRON-1 MG TABLET 1 TAB PO QPM (Reported) Past History Travel History Traveled to [place] past 21 day No Medical History Neurological: NONE EENT: NONE Cardiovascular: NONE Respiratory: asthma Gastrointestinal: NONE Hepatic: cholelithiasis Renal: nephrolithiasis Musculoskeletal: knee pain Psychiatric: depression Endocrine: obesity, BMI > 40 Blood Disorders: NONE Cancer(s): NONE 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 self Primary Language: Greenlandic ETOH Use: 6 Illicit Drug Use: UTD Review of Systems Review of Systems Constitutional: Reports: see HPI. Exam & Diagnostic Data Last 24 Hrs of Vital Signs/I&O Vital Signs Date Time Temp Pulse Resp B/P B/P Pulse O2 O2 Flow FiO2 Mean Ox Delivery Rate 03/01 1810 Room Air 03/01 1807 98.7 69 18 123/63 98 Room Air Physical Exam General Appearance Oriented X3 Core Measures/Miscellaneous Acute Coronary Syndrome ACS Diagnosis: No Cerebrovascular Accident CVA/TIA Diagnosis: No Congestive Heart Failure CHF Diagnosis: No VTE (View Protocol) VTE Risk Factors: Age > 40 [facility] prophylaxis d/t: No contraindications No VTE Pharm Prophylaxis d/t: No contraindications VTE Diagnosis: No VTE Type: NONE VTE Confirmed by (Test): NONE Sepsis (View Protocol) Severe Sepsis Present: No Septic Shock Septic Shock Present: No Miscellaneous Documentation Attending Case Discussed With: Dr Saunders Primary Care Physician: DAMIR HIGGINBOTHAM APRN Patient sees these Specialists Dr Allen Level of Patient Care: Critical Care (CRI)
--- NOTE | 2017-03-01 19:40 | NUR ---
URINE TRIO SENT TO LAB
--- NOTE | 2017-03-01 20:40 | NUR ---
PT ASKING WHEN DCF WOULD BE ARRIVING AND IF SHE WOULD BE DISCHARGED TONIGHT. THIS RN TOLD HER SHE WILL MEET WITH THE CHARGE OPERATOR AND FOLLOWING THAT WE WILL KNOW MORE ABOUT HER STATUS. PT SITTING ON BED, CALM AND COOPERATIVE. SITTER AT DOOR.
--- NOTE | 2017-03-01 21:53 | NUR ---
Crisis Note: Met with pt and discussed she will be evaluated by Crisis on 03/02/17. Pt stated she understands she will remain in the ED overnight.
[2017-03-01] MEDS ORDERED: GUANFACINE HCL E1 MG PO (22:58)
--- NOTE | 2017-03-01 22:59 | NUR ---
MED REC COMPLETED WITH PATIENT. WILL ASK DR ALARCON TO ORDER [facility].
--- NOTE | 2017-03-02 01:15 | NUR ---
PT NOTED TO BE ASLEEP ON BED. NORMAL RR NOTED. SITTER IN PLACE. WILL CONTINUE TO MONITOR.
--- NOTE | 2017-03-02 03:58 | NUR ---
PT CONTINUES TO SLEEP ON BED. NO DISTRESS NOTED. WILL CONTINUE TO MONITOR.
--- NOTE | 2017-03-02 06:09 | NUR ---
PT REMAINS ASLEEP ON BED AT THIS TIME. NORMAL RR NOTED. SITTER IN PLACE. WILL CONTINUE TO MONITOR.
--- NOTE | 2017-03-02 07:08 | NUR ---
REPORT GIVEN TO DIANNA LANCASTER
--- NOTE | 2017-03-02 07:19 | NUR ---
ASSUMED CARE OF PT AT THIS TIME, PT SLEEPING AT THIS TIME. REF RESP RATE NOTED SITTER REMAINS PRESENT. WILL CTM
--- NOTE | 2017-03-02 09:55 | ED PSYCH CRISIS CONSULTATION ---
Crisis Consult Basic Assessment Date of Consult: 03/02/17 Responsible Person/Accompanied By: Mary Barton, mother Insurance Authorization: Insurance #1: Insurance name: AUDI Arellano C&A Phone number: Policy number: [id number] Group number: Authorization number: ED Provider: Patient's ED Provider: YULISSA OCONNOR MD Primary Care Physician: Patient's PCP: DAMIR HIGGINBOTHAM APRN PCP's Current Psychiatrist: Ed Bender Chief Complaint: Psychiatric Related ? S.I./?H.I. Patient's Quote: " My mom said she would take care of the the baby, but she isn' t" Present Illness: Patient is a 21 year old, unmarried female who lives with her mother and her twin sister, and her 12 year old sister. Patient was brought in by EMS, after threatening to kill herself and her baby who is 3 months iold. At this point the baby is in custody of DCF, and a hearing is scheduled on Saturday at 10 a.m. when her mother told me that she will try to get custody of the baby, as patient does not seem able to care for the baby herself. Patient's main complain is the baby, and the fact that patient's mother doesn't always get up in the middle of the night when the baby cries and needs changing or to eat. Patient appears completely overwhelmed by the caring of her child and she had communicated that she was going to take the baby to a bridge and jump off the bridge with her. Mother called, and she was brought to the hospital. Mother reports that patient has threatened this before, "but has never done anything". Patient is on probation after (per mother), 7 years and numerous arrests for Domestic violence toward her mother. Patient is taking back her threat to kill self and baby, but she is extremely labile, and appears as if she can handle very limited amounts of stress. Patient had been told--and told me that=--- that DCF was coming in to see her yesterday; however thyat did not occur, and I have been unable to reach worker or supervisors on the phone. It is a saturday, and there is a hearing scheduled for Saturday in [facility]. When I* spoke with patient's mother, Mary, she indicated that she did not want patient to retun home, as there is nothing but turmoil when she is there; and that she was going to push for custody of the baby. Patient is not aware of this at this point. Patient went through [facility] and was diagnosed with Major Depression. Patient is currently being treated by Ed Bender, and sees Mary SIMS, and is taking Latuda, 40 m. g ; and another medication, which she dioes not remember. Patient feels that the Latuda helped inuitially, but is not helping now Patient is not working at present since she left to have baby; and mother says she does better when she works. 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 Patient is alert and Ox 3. She appears naive and somewhat limited. Patient seems mostly pre-occupied with her needs, and does not feel as though others treat her fairly. Patient's Address: [address] [place] [address] Other Phone Number: Who Do You Live With? Family Family/Informants Interviewed: Mary Barton, mother Allergies - Coded Allergies: ibuprofen (Severe, HIVES 12/10/16) Current Medications - Scheduled Medications Budesonide/Formoterol Fumarate (Symbicort 160-4.5 Mcg Inhaler) 160 MCG-4.5 MCG/ ACTUATION HFA.AER.AD 2 PUF INH BID ASTHMA (Reported) Entered as Reported by GISELE BEAUCHAMP on 12/03/141912 Guanfacine HCl (Guanfacine HCl ER) 1 MG TAB.ER.24H 1 TAB PO DAILY MENTAL HEALTH #30 (Reported) Entered as Reported by ARMANDO CASTELLANOS on 03/01/17 2258 Lurasidone HCl (Latuda) 40 MG TABLET 1 TAB PO QPM MENTAL HEALTH #14 (Reported ) Entered as Reported by VICTOR M DIAZ on 11/29/16 1535 Scheduled PRN Medications Albuterol Sulfate 2.5 MG/3 ML (0.083 %) VIAL.NEB 1 Vial INH/NAYA PRN ASTHMA ( Reported) Entered as Reported by GISELE BEAUCHAMP on 12/03/141912 Albuterol Sulfate (Proair Hfa) 90 MCG HFA.AER.AD 2 PUF INH Q4-6 PRN PRN RESPIRATORY #9 (Reported) Entered as Reported by GISELE BEAUCHAMP on 09/18/16 1625 Laboratory Results: Laboratory Tests 03/01/17 1936: Urine Opiates Screen < 100.00, Methadone Screen < 40, Barbiturate Screen < 60, Ur Phencyclidine Scrn < 6.00, Amphetamines Screen < 100, U Benzodiazepines Scrn < 85, Urine Cocaine Screen < 50, Urine Cannabis Screen < 5.00, Urine Color YEL, Urine Clarity CLEAR, Urine pH 6.0, Ur Specific [place] 1.025, Urine Protein TRACE H, Urine Ketones NEG, Urine Nitrite NEG, Urine Bilirubin NEG, Urine Urobilinogen 0.2, Ur Leukocyte Esterase NEG, Ur Microscopic SEDIMENT EXAMINED, Urine RBC 15-25 H, Urine WBC 3-5 H, Ur Epithelial Cells FEW, Urine Bacteria MOD H, Granular Casts RARE H, Urine Mucus RARE, Urine Hemoglobin LARGE H, Urine Glucose NEG, Urine Test NEGATIVE 03/01/17 175: TSH Cancelled, Free T4 Cancelled 03/01/17 175: Anion Gap 12, Estimated GFR > 60, BUN/Creatinine Ratio 15.6, Glucose 96, Calcium 9.8, Total Bilirubin 0.4, AST 27, ALT 62 H, Alkaline Phosphatase 99, Total Protein 7.9, Albumin 4.4, Globulin 3.5, Albumin/Globulin Ratio 1.3, Free T4 1.26 , Total T3 1.65, TSH &T3 &Free T4 Intrp 1.030, CBC w Diff NO MAN DIFF REQ, RBC 4.65, MCV 75.5 L, MCH 24.6 L, RDW 15.1 H, MPV 8.4, Gran % 83.2 H, Lymphocytes % 11.2 L, Monocytes % 4.8, Eosinophils % 0.4, Basophils % 0.4, Absolute Granulocytes 8.5 H, Absolute Lymphocytes 1.1 L, Absolute Monocytes 0.5, Absolute Eosinophils 0, Absolute Basophils 0, PUBS MCHC 32.6 L, Serum Alcohol < 10.0 Past History Past Medical History Neurological: NONE EENT: NONE Cardiovascular: NONE Respiratory: asthma Gastrointestinal: NONE Hepatic: cholelithiasis Renal: nephrolithiasis Musculoskeletal: knee pain Psychiatric: depression Endocrine: obesity, BMI > 40 Blood Disorders: NONE Cancer(s): NONE 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 Reason for Treatment depression Dates of Treatment past 2 years Response to Treatment fair Diagnosis by History: Mood Disorder NOS, Intermittant Explosive Disorder mAJOR dEPRESSION Substance Use/Abuse History Drug Use/Abuse Substances Used/Abused No Substance Abuse Treatment Substance Abuse Treatment Past Substance Abuse [place] No Current Mental Status Mental Status Orientation: Person, Place, Situation Affect: Anxious, Labile Speech: Pressured Neuro-vegetative: Helpless, Sleep Disturbance Appearance Appearance- Dress/Hygiene: DISHEVELED Behaviors Thought Process: Flight of Ideas, Tangential Thought Content: very egocentric Memory: WNL Insight: Poor SI/HI Risk Assessment Past Suicidal Ideation/Attempts Yes Current Suicidal Ideation/Att Yes Past Homicidal Ideation/Att: No Current Homicidal Ideation/Attempts Yes Degree of Intent: Plan Danger To: Others, Self Gravely Disabled: Lack of Insight, Poor Impulse Control, Poor Judgment Risk Factors: age (under 24/over 65), access to lethal means, high anxiety/ distress, poor impulse control Lethality Ratin PTSD Checklist PTSD Done? patient declined ED Management Sitter: Yes Restraints: No DSM5/PS Stressors/Medical Prob Diagnosis' (DSM 5, Stressors, Medical): Unspecified Depressive Disorder F32.9 r/o Intermiiteant Explosive D/O F63.81 Current GAF: 26 Comments: Patient threatened to jump off bridge with her baby Patient has been belligerent to mother and resents mother for not caring for her baby more Departure Disposition Psych Medical Clearance Date: 03/02/17 Medically Cleared at: 0900 Time Started: 904 Time Ended: 949 Psychiatrist Consulted: Alayna Date Disposition Established: 03/02/17 Time Disposition Established: 1105 Plan for Disposition - Modality: Inpatient Psychiatry Facility: [facility] Follow-up Appt Date: 03/02/17 Additional Instructions: pt risk to self and threatened to kill baby who is now in DCF custody Referrals DAMIR HIGGINBOTHAM APRN (PCP/Family)
--- NOTE | 2017-03-02 10:04 | NUR ---
PT AWKOEN FOR VITALS. PT OFFERS NO COMPAINTS AT THIS TIME. SPEAKING IN SHORT SENTANCES WHEN ASKED QUESTIONS. FLAT AFFECT. SITTER REMAINS PRESENT. WILL CTM
--- NOTE | 2017-03-02 11:15 | NUR ---
ASSUMED CARE OF THIS PT FROM DIANNA RANKIN. PT LYING ON BED, CALM AND COOPERATIVE. PT HAS MET WITH CRISIS. DCF HAS NOT COME TO ER YET. SITTER AT DOOR.
--- NOTE | 2017-03-02 12:30 | NUR ---
PT SITTING ON BED IN ROOM 14 NOT SPEAKING TO ANYONE. PT WAS MADE AWARE BY CRISIS THAT SHE WILL BE ADMITTED TO [facility] ON A PEC. PT UNDER GOOD BEHAVIORAL CONTROL. SITTER AT DOOR.
--- NOTE | 2017-03-02 13:30 | NUR ---
PER PENNY, PT WAS SPEAKING ON THE PHONE WITH HER MOTHER AND ASKED HER TO COME PICK HER UP. PT THEN ASKED TO CALL HER FATHER AND PENNY TOLD HER NO BECAUSE SHE WAS GETTING AGGRIVATED ON THE PHONE WITH HER MOTHER. PT WAS ADVISED AGAIN THAT SHE IS ON A PEC AND CANNOT BE D/C. SITTER AT DOOR.
--- NOTE | 2017-03-02 13:46 | IP CRISIS DIAG ASSESS PSYCH ---
Diagnostic Assessment Basic Assessment Insurance Authorization: Insurance #1: Insurance name: AUDI Arellano C&A Phone number: Policy number: [id number] Group number: Authorization number: [id number] Primary Care Physician: Patient's PCP: DAMIR HIGGINBOTHAM APRN PCP's Patient's Quote: " My mom said she would take care of the the baby, but she isn' t" Present Illness: Patient is a 21 year old, unmarried female who lives with her mother and her twin sister, and her 12 year old sister. Patient was brought in by EMS, after threatening to kill herself and her baby who is 3 months iold. At this point the baby is in custody of DCF, and a hearing is scheduled on Saturday at 10 a.m. when her mother told me that she will try to get custody of the baby, as patient does not seem able to care for the baby herself. Patient's main complain is the baby, and the fact that patient's mother doesn't always get up in the middle of the night when the baby cries and needs changing or to eat. Patient appears completely overwhelmed by the caring of her child and she had communicated that she was going to take the baby to a bridge and jump off the bridge with her. Mother called, and she was brought to the hospital. Mother reports that patient has threatened this before, "but has never done anything". Patient is on probation after (per mother), 7 years and numerous arrests for Domestic violence toward her mother. Patient is taking back her threat to kill self and baby, but she is extremely labile, and appears as if she can handle very limited amounts of stress. Patient had been told--and told me that=--- that DCF was coming in to see her yesterday; however thyat did not occur, and I have been unable to reach worker or supervisors on the phone. It is a saturday, and there is a hearing scheduled for Saturday in [facility]. When I* spoke with patient's mother, Mary, she indicated that she did not want patient to retun home, as there is nothing but turmoil when she is there; and that she was going to push for custody of the baby. Patient is not aware of this at this point. Patient went through [facility] and was diagnosed with Major Depression. Patient is currently being treated by Ed Bender, and sees Mary SIMS, and is taking Latuda, 40 m. g ; and another medication, which she dioes not remember. Patient feels that the Latuda helped inuitially, but is not helping now Patient is not working at present since she left to have baby; and mother says she does better when she works. 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 Patient is alert and Ox 3. She appears naive and somewhat limited. Patient seems mostly pre-occupied with her needs, and does not feel as though others treat her fairly. Patient's Address: [address] [place] [id number] Other Phone Number: Who Do You Live With? Family Feel Safe Where You Live? Yes Feel Safe in Your Relationship Yes Marital Status: single Do You Have Children? Yes Ages? 2.5 months Primary Language? Mohawk Language(s) Spoken At Home: Mohawk Family/Informants Interviewed: Maryrandell Barton, mother Allergies - Coded Allergies: ibuprofen (Severe, HIVES 12/10/16) Current Medications - Scheduled Medications Budesonide/Formoterol Fumarate (Symbicort 160-4.5 Mcg Inhaler) 160 MCG-4.5 MCG/ ACTUATION HFA.AER.AD 2 PUF INH BID ASTHMA (Reported) Entered as Reported by GISELE BEAUCHAMP on 12/03/141912 Guanfacine HCl (Guanfacine HCl ER) 1 MG TAB.ER.24H 1 TAB PO DAILY MENTAL HEALTH #30 (Reported) Entered as Reported by ARMANDO CASTELLANOS on 03/01/17 2258 Lurasidone HCl (Latuda) 40 MG TABLET 1 TAB PO QPM MENTAL HEALTH #14 (Reported ) Entered as Reported by VICTOR M DIAZ on 11/29/16 1535 Scheduled PRN Medications Albuterol Sulfate 2.5 MG/3 ML (0.083 %) VIAL.NEB 1 Vial INH/NAYA PRN ASTHMA ( Reported) Entered as Reported by GISELE BEAUCHAMP on 12/03/141912 Albuterol Sulfate (Proair Hfa) 90 MCG HFA.AER.AD 2 PUF INH Q4-6 PRN PRN RESPIRATORY #9 (Reported) Entered as Reported by GISELE BEAUCHAMP on 09/18/16 1625 Consequences of Psych Med Use: feels meds not helping Lab Results: Laboratory Tests 03/01/17 1936: Urine Opiates Screen < 100.00, Methadone Screen < 40, Barbiturate Screen < 60, Ur Phencyclidine Scrn < 6.00, Amphetamines Screen < 100, U Benzodiazepines Scrn < 85, Urine Cocaine Screen < 50, Urine Cannabis Screen < 5.00, Urine Color YEL, Urine Clarity CLEAR, Urine pH 6.0, Ur Specific [place] 1.025, Urine Protein TRACE H, Urine Ketones NEG, Urine Nitrite NEG, Urine Bilirubin NEG, Urine Urobilinogen 0.2, Ur Leukocyte Esterase NEG, Ur Microscopic SEDIMENT EXAMINED, Urine RBC 15-25 H, Urine WBC 3-5 H, Ur Epithelial Cells FEW, Urine Bacteria MOD H, Granular Casts RARE H, Urine Mucus RARE, Urine Hemoglobin LARGE H, Urine Glucose NEG, Urine Test NEGATIVE 03/01/17 1752: TSH Cancelled, Free T4 Cancelled 03/01/17 1751: Anion Gap 12, Estimated GFR > 60, BUN/Creatinine Ratio 15.6, Glucose 96, Calcium 9.8, Total Bilirubin 0.4, AST 27, ALT 62 H, Alkaline Phosphatase 99, Total Protein 7.9, Albumin 4.4, Globulin 3.5, Albumin/Globulin Ratio 1.3, Free T4 1.26 , Total T3 1.65, TSH &T3 &Free T4 Intrp 1.030, CBC w Diff NO MAN DIFF REQ, RBC 4.65, MCV 75.5 L, MCH 24.6 L, RDW 15.1 H, MPV 8.4, Gran % 83.2 H, Lymphocytes % 11.2 L, Monocytes % 4.8, Eosinophils % 0.4, Basophils % 0.4, Absolute Granulocytes 8.5 H, Absolute Lymphocytes 1.1 L, Absolute Monocytes 0.5, Absolute Eosinophils 0, Absolute Basophils 0, PUBS MCHC 32.6 L, Serum Alcohol < 10.0 Toxicology Screen Completed? Yes Results: negative Symptoms of Use: none Past History Past Medical History Medical History: Asthma, depression Past Surgical History Surgical History cholecystectomy Abuse/Trauma History Trauma History/Current Trauma: Denies History of Trauma/Abuse Treatment? No Abuse/Trauma Treatment: no Legal History Current Legal Status: on probation Have you ever been arrested? Yes Number of Arrests: [address] Dates: no Psychosocial History Strengths/Capabilities: has housing, she currently has services through [facility] Physical Limitations (Interventions): weak knee, in ankle cuffs Mother plans to get custody of child and to insist patient move out Psychiatric Treatment History Psych Treatment Psychiatric Treatment Yes Inpatient Treatment No Outpatient Treatment Yes Location of Treatment [facility] Reason for Treatment depression Dates of Treatment past 2 years Response to Treatment fair Diagnosis by History: Mood Disorder NOS, Intermittant Explosive Disorder mAJOR dEPRESSION Risk Factors: age (under 24/over 65), access to lethal means, high anxiety/ distress, poor impulse control Substance Use/Abuse History Drug Use/Abuse minimum 12mo Hx Substances Used/Abused No Substance Abuse Treatment Substance Abuse Treatment Past Substance Abuse [place] No Sexual History Sexually Active Yes # of partners 1 Sexual Orientation Heterosexual Use of Protection No Sexual Concerns: not active Education History Highest Level of Education: high school/GED Preferred Learning Style: visual Current Mental Status Mental Status Orientation: Person, Place, Situation Affect: Anxious, Labile Speech: Pressured Neuro-vegetative: Helpless, Sleep Disturbance Appearance Appearance- Dress/Hygiene: DISHEVELED Behaviors Thought Process: Flight of Ideas, Tangential Thought Content: very egocentric Memory: WNL Insight: Poor SI/HI Risk Assessment - Minimum 6mo History- Past Suicidal Ideation/Attempts Yes Current Suicidal Ideation/Att Yes Past Homicidal Ideation/Att: No Current Homicidal Ideation/Attempts Yes Degree of Intent: Plan Danger To: Others, Self Gravely Disabled: Lack of Insight, Poor Impulse Control, Poor Judgment Risk Factors: age (under 24/over 65), access to lethal means, high anxiety/ distress, poor impulse control Lethality Ratin Needs/Init TX Plan/Goals: Admit to in-patient psych unit due to S.I. and H I Monitor on 15 minute checks. Group and Individual therapy Family meeting. Meet with DCF regarding planning Coordinate discharge plan AUDIT-C Questionnaire: AUDIT-C Questionnaire: Response Value ETOH use in the past year Never 0 # drinks typical/day Doesn't Drink 0 6 or > drinks per occasion Never 0 Total 0 DSM5/PS Stressors/Medical Prob Diagnosis' (DSM 5, Stressors, Medical): Unspecified Depressive Disorder F32.9 r/o Intermiiteant Explosive D/O F63.81 Current GAF: 26 Comments: Patient threatened to jump off bridge with her baby Patient has been belligerent to mother and resents mother for not caring for her baby more
--- NOTE | 2017-03-02 14:18 | SOCIAL WORKER SOCIAL HX PSYCH ---
Social History Basic Assessment Insurance Authorization: Insurance #1: Insurance name: AUDI Arellano [employer] Phone number: Policy number: [id number] Group number: Authorization number: [id number] Curr Source of Income/Entitlements: none Primary Care Physician: Patient's PCP: DAMIR HIGGINBOTHAM APRN PCP's Present Problem: Patient to be hospitalized due to threat to jump off bridge with her baby. Patient is very unstable, and appeared to be overwhelmed taking care of baby as she had said that "when the baby cries at night my mother won't even get up to change her, like she said she would". DCF has child in custody, with hearing scheduled for Saturday in [place], [place] Mother intends to file for custody of the child and to bar patient from staying at mom's home Primary Language? Bolivian Language(s) Spoken At Home: Bolivian Living Situation Other Living Arrangement: relative's/guardian's deidre Feel Safe Where You Are Living Yes Feel Safe in Relationships? Yes Allergies - Coded Allergies: ibuprofen (Severe, HIVES 12/10/16) Current Medications - Scheduled Medications Budesonide/Formoterol Fumarate (Symbicort 160-4.5 Mcg Inhaler) 160 MCG-4.5 MCG/ ACTUATION HFA.AER.AD 2 PUF INH BID ASTHMA (Reported) Entered as Reported by GISELE BEAUCHAMP on 12/03/141912 Guanfacine HCl (Guanfacine HCl ER) 1 MG TAB.ER.24H 1 TAB PO DAILY MENTAL HEALTH #30 (Reported) Entered as Reported by ARMANDO CASTELLANOS on 03/01/17 2258 Lurasidone HCl (Latuda) 40 MG TABLET 1 TAB PO QPM MENTAL HEALTH #14 (Reported ) Entered as Reported by VICTOR M DIAZ on 11/29/16 1535 Scheduled PRN Medications Albuterol Sulfate 2.5 MG/3 ML (0.083 %) VIAL.NEB 1 Vial INH/NAYA PRN ASTHMA ( Reported) Entered as Reported by GISELE BEAUCHAMP on 12/03/141912 Albuterol Sulfate (Proair Hfa) 90 MCG HFA.AER.AD 2 PUF INH Q4-6 PRN PRN RESPIRATORY #9 (Reported) Entered as Reported by GISELE BEAUCHAMP on 09/18/16 8984 Consequences of Psych Med Use: Pt. 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 sister. Primary Childhood Caretakers: father, mother Family Life During Childhood: o. k. some fighting DCF Involvement? No Mother's Age (Current/): 47 Relationship w/Mother: lots of arguments and domestic violence charges to patient Father's Age (Current/): 50 Relationship w/Father: not close parents and he moved away Any Sibling(s)? Yes Sibling's Gender(s)/Age(s): female Sibling 1:, female Sibling 2: (one twin sis) Relationship w/Sibling(s): they argue often Relationship w/Friends: has few friends Number of Pregnancies: 1 Number of Miscarriages: 0 Number of Abortions: 0 Abuse/Trauma History Trauma History/Current Trauma: Denies History of Trauma/Abuse Treatment? No Abuse/Trauma Treatment: no Legal History Current Legal Status: on probation Pending Court Dates: no Have you ever been arrested Yes Number of Arrests: 6 Hx of Adult Legal Charges? Yes If Yes: misdemeanor List/Date Most Recent Lgl Chgs: about 10 domestic violence arrests Psychosocial History Primary Support System: mother Strengths/Capabilities: has housing, she currently has services through [facility] Weaknesses: has trouble taking care of self and baby Physical Limitations (Interventions): weak knee, in ankle cuffs Mother plans to get custody of child and to insist patient move out History of Seizures? No History of Blackouts? No ADL Limitations: no Hosmer/Social/Peer Relations few (any ?) friends Meaningful Activities: worked at [employer] and liked [employer] Childhood Gnosticist: no yarsani stated Current Scientology Affiliation: no yarsani stated Is Spirituality Important to You? no Patient's Ethnicity: Bolivian (Lithuanian) Cultural/Ethnic Issues: no Are There Developmental Issues? Yes If Yes, Explain: patient seems easily overwhelmed and is very concrete, and suggests limited intellectual functioning. She did complete high school Milestones Achieved: WNL Psychiatric Treatment History Psych Treatment Inpatient Treatment No Outpatient Treatment Yes Location of Treatment Grif. 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 [employer] [facility] Treatment of Prior Episodes: was in [facility] Diagnosis: Mood Disorder NOS, Intermittant Explosive Disorder mAJOR dEPRESSION Psychodynamic Issues: Depression Anger issues Risk Factors: age (under 24/over 65), access to lethal means, high anxiety/ distress, poor impulse control Substance Use/Abuse History Drug Use/Abuse Substance Used/Abused No History Symptoms of Use: none Substance Abuse Treatment Substance Abuse Treatment Inpatient Treatment No Sexual History Sexually Active Yes # of partners 1 Sexual Orientation Heterosexual Use of Protection No Sexual Concerns: not active Education History Highest Level of Education: high school/GED Highest Grade Completed: 12 Number of College Years: 0 Preferred Learning Style: visual HX of Learning Difficulties: None reported Barriers to Learning: None reported Special Communication Needs: None reported Employment History Employment Unemployed No. of Jobs in Last 5 Years: 1 Attendance: Left for unable to get job back Performance: Good History Have You Been in The ? No Current Mental Status Mental Status Orientation: Person, Place, Situation Affect: Anxious, Labile Speech: Pressured Neuro-vegetative: Helpless, Sleep Disturbance Appearance Appearance- Dress/Hygiene: DISHEVELED Behaviors Thought Process: Flight of Ideas, Tangential Thought Content: very egocentric Memory: WNL Insight: Poor SI/HI Risk Assessment Past Suicidal Ideation/Attempts Yes Current Suicidal Ideation/Att Yes Past Homicidal Ideation/Att: No Current Homicidal Ideation/Attempts Yes Degree of Intent: Plan Danger To: Others, Self Gravely Disabled: Lack of Insight, Poor Impulse Control, Poor Judgment Lethality Ratin - Conclusion and Recommendations for treatment - and discharge planning Summary: Patient very unhappy and unrealistic about the seriousness of stating she would jump off a bridge with her baby Patient is not breast feeding
--- NOTE | 2017-03-02 14:45 | NUR ---
PT SITTING IN CORNER OF ROOM WITH BLANKET OVER HEAD NOT SPEAKING WITH STAFF OR THIS RN. [facility] BUT DID NOT RESPOND WHEN ASKED IF SHE WOULD LIKE IT. SITTERS AT DOOR. THIS RN TO CALL REPORT AT 1530 TO KRYSTAL MORAN
--- NOTE | 2017-03-02 15:25 | NUR ---
GAVE REPOTR TO ED ON [facility]. BOOKED TRANSPORT
--- NOTE | 2017-03-02 16:00 | NUR ---
CALLED TRANSPORT TO FOLLOW UP ON TRANSPORT REQUEST. WAS TOLD THAT THEY WERE WAITING FOR SOMEONE TO "CALL IN" AND THAT THEY SHOULD BE UP SOON.
--- NOTE | 2017-03-02 16:35 | NUR ---
TRANSPORT ARRIVED AND PT WENT CALMLY AND COOPERATIVELY. PT HAD ASKED TO SPEAK WITH THIS RN. THIS RN HAD A CONVERSATION WITH PT FOR APPROX 20 MINUTES. PT SPOKE ABOUT HOW SHE FEELS OVERWHELMED. PT TOLD THIS RN THAT BABY HAS AN APPOINTMENT ON SATURDAY AND THAT HE HAS A TO 3 INTAKE SOON. SITTERS AT DOOR.
[2017-03-02 17:15] VITALS: BP 144/66
--- NOTE | 2017-03-02 18:15 | NUR ---
ADMITTED FROM ED ON [facility] FOR DEPRESSION AND SI. HAD ALLEGEDLY THREATENED TO JUMP OFF BRIDGE WITH HER BABY. PATIENT REPORTS FEELING OVERWHELMED TAKING CARE OF THE BABY. fATHER ALLEGEDLY REFUSING TO ACCEPT RESPONSIBILITY. pATIENT LIVES WITH HER MOTHER AND TWIN SISTER. DCF HAS BECOME INVOLVED. MOOD IS STABLE, EUTHYMIC AFFECT. DENIES CURRENT THOUGHTS OF SELF HARM OR DESIRE TO HURT HER BABY.
--- NOTE | 2017-03-02 18:45 | History & Physical ---
General Information and HPI MD Statement: I have seen and personally examined SHAUNA BENAVIDEZ and documented this H&P. The patient is a 21 year old F who presented with a patient stated chief complaint of depression, suicideal ideation threatening to harm herself and her 3 month old baby.. Source of Information: patient, old records Exam Limitations: no limitations History of Present Illness: The patient is a 21 yo female 3 monts post who was brought to the ED by EMS after threatening to harm herself and her baby by jumping off of a bridge. She has a known h/o depression and bipolar disorder. She does have a h/o asthma and does use her inhalers as needed. No significant problems at present. Denies dyspnea, chest pain, abd pain, etc. Allergies/Medications Allergies: Coded Allergies: ibuprofen (Severe, HIVES 12/10/16) Home Med list Albuterol Sulfate 2.5 MG/3 ML (0.083 %) VIAL.NEB 1 Vial INH/NAYA PRN ASTHMA ( Reported) Albuterol Sulfate (Proair Hfa) 90 MCG HFA.AER.AD 2 PUF INH Q4-6 PRN PRN RESPIRATORY (Reported) Budesonide/Formoterol Fumarate (Symbicort 160-4.5 Mcg Inhaler) 160 MCG-4.5 MCG/ ACTUATION HFA.AER.AD 2 PUF INH BID ASTHMA (Reported) Guanfacine HCl (Guanfacine HCl ER) 1 MG TAB.ER.24H 1 TAB PO DAILY MENTAL HEALTH (Reported) Lurasidone HCl (Latuda) 40 MG TABLET 1 TAB PO QPM MENTAL HEALTH (Reported) Past History Travel History Traveled to [place] past 21 day No Medical History Neurological: NONE EENT: NONE Cardiovascular: NONE Respiratory: asthma Gastrointestinal: NONE Hepatic: cholelithiasis Renal: nephrolithiasis Musculoskeletal: NONE Psychiatric: bipolar disease, depression Endocrine: obesity, BMI > 40 Blood Disorders: NONE Cancer(s): 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 Home Who Do You Live With? self Primary Language: Palestinian ETOH Use: 6 Illicit Drug Use: UTD Functional Ability Ambulation: independent Employment History Employment Unemployed Review of Systems Review of Systems Constitutional: Denies: no symptoms. EENTM: Denies: no symptoms. Cardiovascular: Denies: no symptoms. Respiratory: Denies: no symptoms. GI: Denies: no symptoms. Genitourinary: Denies: no symptoms. Musculoskeletal: Denies: no symptoms. Skin: Denies: no symptoms. Neurological/Psychological: Reports: depressed, emotional problems. Hematologic/Endocrine: Denies: no symptoms. Immunologic/Allergic: Denies: no symptoms. Date of Last Pap Smear: 02/17/17 Exam & Diagnostic Data Last 24 Hrs of Vital Signs/I&O Vital Signs Date Time Temp Pulse Resp B/P B/P Pulse O2 O2 Flow FiO2 Mean Ox Delivery Rate 03/03 2012 97.2 124/70 03/03 1555 70 132/63 03/03 1213 74 132/59 03/03 0805 96.6 79 138/89 Intake & Output 03/03 1600 03/03 0800 03/03 0000 Intake Total Output Total Balance Patient 243 lb Weight Physical Exam General Appearance Alert, Oriented X3, Cooperative, No Acute Distress Skin No Rashes, No Breakdown, No Significant Lesion HEENT Atraumatic, PERRLA, EOMI, Mucous Membr. moist/pink Neck Supple, No JVD, No thryomegaly, +2 Carotid Pulse wo Bruit, No LAD Cardiovascular Regular Rate, Normal S1, Normal S2, No Murmurs Lungs Clear to Auscultation, Normal Air Movement Abdomen Normal Bowel Sounds, Soft, No Tenderness, No Hepatospenomegaly, No Masses Neurological Exam Findings: Normal Gait, Normal Speech, Strength at 5/5 X4 Ext, Normal Tone, Sensation Intact, Cranial Nerves 3-12 NL, Reflexes 2+ Cranial Nerves II through XII: INTACT Extremities No Clubbing, No Cyanosis, No Edema, Normal Pulses, No Tenderness/ Swelling Vascular Normal Pulses, Pulses Symmetrical Last 24 Hrs of Labs/Waldo: Impression/Plan: #Depression/Suicidal Ideation- as above, patient threatened harm to herself and child. Plan: Admit to [facility]. Medications/counseling as per Psychiatry. #H/O Asthma- no active symptoms at present. Plan: Continue prn inhalers and Symbicort. Assessment/Plan Assessment: Impression/Plan: #Depression/Suicidal Ideation- as above, threatened harm to herself and child. Plan: Admit to [facility]iatry. Meds as per Psychiatry. #H/O Asthma - stable at present. Plan: Continue Symbicort inhaler and rescue inhalers. Follow-up as OP. As Ranked By This Provider Problem List: 1. Major depressive disorder, single episode, unspecified 2. Depressed 3. Asthma affecting , antepartum Miscellaneous Miscellaneous Documentation Attending Case Discussed With: BERE BECKFORD MD Primary Care Physician: DAMIR HIGGINBOTHAM APRN Patient sees these Specialists Dr Allen Level of Patient Care: Critical Care (CRI) Consults Needed: Consulting Physician: NONE Attending MD Review Statement Attending Statement Attending MD Statement: examined this patient, discuss w/resident/PA/PYROTECHNIC MIXER, agreed w/resident/PA/PYROTECHNIC MIXER, discussed with nursing, reviewed images Attending Assessment/Plan: The patient was seen and note as above.
[2017-03-02 20:38] VITALS: BP 133/74
--- NOTE | 2017-03-02 21:28 | NUR ---
PT IS VISIBLE ON UNIT, SOCIAL WITH PEERS AND WATCHING TV IN LOUNGE. PT HAD VISITORS COME IN TO BRING BELONGINGS BUT HAD NO INTEREST IN INTERACTING WITH THEM AND THEY LEFT AFTER 5 MINUTES. COOPERATIVE AND COMPLIANT WITH STAFF. ATTENDED WRAP UP MEETING. NO COMPLAINTS OR SI REPORTED. PT HAS A STABLE MOOD AND FULL RANGE AFFECT.
--- NOTE | 2017-03-03 05:55 | NUR ---
PATIENT SLEPT ALL NIGHT.
[2017-03-03 08:05] VITALS: BP 138/89
--- NOTE | 2017-03-03 12:00 | CPS MD/APRN INITIAL ASSE PSYCH ---
Psychiatric Admission Appraisal Manager's Note Reviewed: Yes Patient Seen and Examined: Yes Identifying Information: young white woman Chief Complaint: depression Reaction to Hospitalization: agreeable History of Present Illness Onset of Illness: several years ago Circumstances Leading to Admission: threatening to throw self and infant over bridge Problem(s) Justifying Need for Admission: suicidal and homicidal threats Other HPI: 21 year old woman with a history of past psychiatric treatment, who was brought in due to threatening to jump off a bridge with her 3 month old baby. She presented to the ER unstable, labile, with limited frustration tolerance. She denied wanting to harm her baby or herself, but admitted she is overwhelmed with her stressor of having this child, and stated that her mother has not being supportive and has not helped her care for the child. She appears to have some cognitive limitations and is childlike. She stated that her sleep is impaired due to the baby, her appetite is good. She said that she had no intention to harm herself recently and denied any wishes to harm her baby. She stated that she had no history of hearing voices, no VH, and no SI/HI. The crisis consult notes that she has been on probation for violence toward her mother, and that she has made threats before but never attempted anything. She has a hearing on Saturday with [facility] for disposition of the baby, and she stated that she is trying to get them to do the hearing at the hospital. She Goes to Care, once per month, takes latuda 40mg and guanfacine. Stated that a few years ago she had suicidal thoughts, and threatened suicide with a knife, and other times had suicidal thoughts. Past Psychiatric History Past Diagnosis(es)- if any: intermittent explosive disorder Past Precipitating Factors- if any: poor sleep, argument with family - Include inpatient and outpatient treatment Treatment History: outpatient treatment at [facility]. Denies inpatient admissions. History of Suicide Attempts or Gestures threatened suicide with a knife. 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 Significant Relationships (family/friends): none currently, stated that father is not involved Education: Vocation/Occupation: worked in the past at [employer]? not working now Legal: on probation for assaulting mother Healthly Behaviors Screening Tobacco Screening Tobacco Use from ED Docu: Never used - If tobacco counseling indicated - the following topics are required. - #1 Recognizing dangerous situations. - #2 Coping Skills. - #3 Basic information about quitting. Status of Tobacco Cessation Counseling: Not Applicable Cessation Med Status Not Applicable Alcohol Screening - ETOH screen POS if BAL >=80 or Audit-C>= M4/F3 Audit-C Score from Diag Assess: 0 Blood Alcohol Level: Laboratory Tests 03/01 1751 Toxicology Serum Alcohol (<10 MG/DL) < 10.0 Alcohol Use Screening Results: Neg per Audit C &/or BAL - If ETOH counseling indicated - the following topics are required. - #1 Express concern about the patient's - drinking at unhealthy levels, include informing - of national norms for moderate drinking: - men <= 14 drinks/week, max 4 drinks/occasion - women <= 7 drinks/week, max 3 drinks/occasion - #2 Providing feedback, including linking alcohol to - negative physical effects (liver injury, hypertension) - negative emotional effects (relationship problems and - depression) - negative occupational consequences (reduced work - performance) - #3 Advising the patient to abstain from alcohol or - to drink below national norms for moderate drinking - (as listed above). Status of ETOH Use Counseling: N/A B/C NO ETOH Use Metabolic Screening - Screen if on a Neuroleptic Medication - Metabolic screening should include: - Blood Pressure, BMI, Glucose or Hgb A1c, & a - Lipid profile from within the past 365 days. Metabolic Screening () Not Applicable, patient not on a neuroleptic. OR () Patient on a neuroleptic(s) . Enter below results for Glucose or Hemoglobin A1C, and lipid panel if obtained during the last 365 days. BMI: 37.100 Blood Pressure: 124/70 Laboratory Results (If applicable): Exam and Plan Mental Status Examination Ambulation Status: intact Appearance: wnl Attitude towards examiner: pleasant Psychomotor activity: mnormal Behavior: cooperative Quality of speech: regular rate and rhythm Affect: neutral, reactive, full Mood: good Suicidal Ideation: none Homicidal Ideation: none Hallucinations: none Paranoid/Delusional Material: none Difficulties with thought organization: none; howeve concrete, poor frustration tolerance, poor abilitu to view other peope's viewpoints Insight: poor Judgment: poor Orientation: x3 Cognition: impaired Memory Function: intact grossly to basic personal hx Estimate of intellectual functioning: low Assets/Strengths Patient Identified Assets/Strengths: family support, has a child Impression/Plan Impression and Plan: 21 y/o woman w/ hx psychiatric treatment, who presents cognitively limited, with little insight regarding recent events, admitted after she threatened to jump off bridge with her 3 month old baby. She stated that she is angry w/ her mother for not caring for her baby as much, blames her mother for her behavior, externalizes blame, limited ability to discuss her expectations. Plan to increase her latuda to 40mg twice daily, with food; and guanfacine 1mg daily. Collateral from outpatient, family, and DCF involvement - Include all active medical diagnosis that require tx DSM 5 Diagnosis(es): unspecified depressive d/o r/o borderline intellectual functioning r/o unspecified personality d/o r/o unspecified impulse control d/o - Initial Tx Plan for Active Psych & Medical Conditions Treatment Plan: milieu therapy, groups, medication, meet w/ tx team - Factors that would help patient function - in a less restrictive setting. Factors: see above; address her dynamic risk factors of impaired impulse control, frustration tolerance with education, medication and outpatient support when discharge ready.
--- NOTE | 2017-03-03 12:03 | NUR ---
PT IS PRESENT WITHIN THE UNIT, APPEARS QUIET HOWEVER APPROPRIATE WITH PEERS AND STAFF, IS ATTENDING GROUPS WHERE SHE REPORTED + MOOD, AND FULL RANGE AFFECR WITH A GOAL FOR THE DAY TO ADJUST TO THE UNIT, MEDICATION COMPLAINT, NO ISSUES OR COMPLAINTS REPORTED OR OBSERVED.
[2017-03-03 12:13] VITALS: BP 132/59
[2017-03-03 15:55] VITALS: BP 132/63
[2017-03-03 20:12] VITALS: BP 124/70
--- NOTE | 2017-03-03 22:43 | NUR ---
PT HAS BEEN QUIET ON THE UNIT AND SOCIALIZES WITH SELECT INDIVIDUALS. SHE REPORTED TO STAFF THAT SHE WAS WORRIED ABOUT HER DCF MEETING IN REGARDS TO HER SON. SHE EXPRESSED THAT HER MOTHER WAS TRYING TO PUT A RESTRAINING ORDER BETWEEN HER AND HER SON. STAFF DIRECTED HER TO FOCUS ON THE THINGS SHE COULD CURRENTLY CONTROL. PT DENIED ANY THOUGHTS OF SI WHEN ASKED BY STAFF.
--- NOTE | 2017-03-04 05:21 | NUR ---
PT SLEPT AFTER BENADRYL 25 PRN AT 2130.
[2017-03-04 07:41] VITALS: BP 125/58
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
[2017-03-04 12:33] VITALS: BP 134/57
--- NOTE | 2017-03-04 13:39 | NUR ---
PT IS STABLE WITH EUTHYMIC AFFECT, VISIBLE WTIHIN THE COMMUNITY AND INTERACTING WITH PEERS/STAFF MEMBERS. PT SHARED SHE WAS CONCERNED HER DCF WORKER WOULDN'T BE ABLE TO REACH HER REGARDING HER CHILD ON THE PT PHONE AND REQUESTED THE NUMBER FOR THE NURSES STATION- THIS WAS PROVIDED. PT HAS BEEN ATTENDING GROUPS AND IS PLEASANT ON THE UNIT. VS ARE STABLE AND DENIES ANY SI/HI TO THIS MHW.
[2017-03-04 16:35] VITALS: BP 122/84
--- NOTE | 2017-03-04 19:32 | NUR ---
PT IS CALM, COOPERATIVE WITH STAFF AND PEERS, AND COMPLIANT WITH UNIT RULES. PT IS OFTEN IN [place]IE[place], INTERACTING WELL WITH OTHERS. MOOD IS STABLE, AFFECT APPEARS EUTHYMIC TO FULL RANGE, COMMUNICATION IS ORGANIZED AND APPEARS NORMAL IN ALL RESPECTS, AND APPETITE IS NORMAL. PT DENIES SI AT THIS TIME.
[2017-03-04 20:01] VITALS: BP 132/68
--- NOTE | 2017-03-05 05:50 | NUR ---
PT SLEPT AFTER BENADRYL 50 PRN AT 2130.
[2017-03-05 07:56] VITALS: BP 110/62
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
--- NOTE | 2017-03-05 10:15 | CP SOUTH PROGRESS NOTE PSYCH ---
Psych (Inpt) Progress Note Progress Note Include the following elements, when applicable: Involvement in the active treatment of the patient with behavioral observations of the patient and the patient's response to the treatment. Review of the ongoing treatment process in the context of the treatment plan. Indication of how multi-disciplinary staff members are carrying out the treatment plan. Plans for future interventions and recommendations for revision of the treatment plan. Liaison with other physicians/providers. Progress Note: I discussed this patient's progress to date, current mental status, treatment process in the context of the treatment plan, and discharge planning with staff/ team in the daily morning inpatient team meeting. I also met with the patient myself in individual session. Current Medications Sig/Lala Start time Last Medication Dose Route Stop Time Status Admin Albuterol Sulfate 2 PUF Q4-6 PRN PRN 03/02 1845 AC 03/04 INH 1332 Albuterol Sulfate 3 ML Q6-PRN PRN 03/02 1845 AC INH Budesonide/ 2 PUF BID 03/02 2200 AC 03/05 Formoterol Fumarate INH 0816 Diphenhydramine HCl 50 MG AT BEDTIME NEED.. 03/04 1125 AC 03/04 PO 2130 Diphenhydramine HCl 25 MG AT BEDTIME PRN 03/02 1900 DC 03/03 PO 2130 Hydroxyzine HCl 25 MG Q6-PRN PRN 03/02 1900 AC PO Lurasidone HCl 40 MG 1/2H B/BREAKF/DINNER 03/03 1630 AC 03/05 PO 0815 Vital Signs Date Time Temp Pulse Resp B/P B/P Pulse O2 O2 Flow FiO2 Mean Ox Delivery Rate 03/05 0756 97.2 76 110/62 03/04 2001 97.5 60 132/68 03/04 1635 86 122/84 03/04 1233 73 134/57 A: Chart, progress notes, labs, vital signs and medication list reviewed. No new lab results today. Vital signs within normal limits. Met with the patient today, together with her mother (Mary) and Misti Rausch LCSW. The patient's tx progress to date, medication regimen, level of safety and discharge planning were reviewed and discussed. Mary shared that the patient has a difficult time getting along with her and her twin sister, and not reacting to the word "no." Mary said the patient will occasionally "act out" when she doesn' t get what she wants or is denied requests for money. Mary stated that the patient is a good mother, that she brings her son to doctor's appointments, makes sure his needs are met. Mary expressed no safety concerns surrounding the patient's involvement with her son or the patient's personal safety. Mary expressed that she is willing to have the patient return to her home and is in agreement with the patient following up with [facility] level of care for increased support post-discharge. The patient was also in agreement to [facility], but requested this be done at [facility] so that she can also resume individual therapy with Dameon Aguilera LCSW. During family meeting the patient was occasionally tearful; she reported it has been difficult being away from her son. She described her mood as "a little sad " surrounding the circumstances of present hospitalization, stated she would never harm herself or her son. She denied ever wanting to harm herself or her son. Denied current SI and HI. Denied AH, VH, PI. No evidence of delusional thought content. Thought process concrete, goal directed. Insight/judgement limited. Reported sleeping poorly last night and feeling tired during the day d/ t receiving prescribed Intuniv daily. Stated that she typically takes this nightly which helps her fall asleep. I informed patient that I would change the timing of administration. Stated her energy level is "beronica low" d/t poor sleep. Described appetite as "fine." Patient agreeable to continue taking medications, denied SEs, reported tolerating increase in Latuda well. P: -cont. monitoring on unit for safety, mood and SI. -change Intuniv 1mg daily to QPM; will start tomorrow night as patient was already dosed earlier today. -cont. benadryl 50mg QHS prn for insomnia. Will start melatonin 5mg QPM for insomnia. -cont. Latuda 40mg BID for mood stabilization. -Arrange IOP f/u at [facility] per METAL TILE LATHER. -Likely D/C as 3-day paper will .
--- NOTE | 2017-03-05 10:35 | SOCIAL WORKER PROG NOTE PSYCH ---
Social Work Progress Note Progress Note 10:30am This service writer spoke with pt's mother by phone. A family meeting has been scheduled for 3:30pm today.
--- NOTE | 2017-03-05 10:38 | SOCIAL WORKER PROG NOTE PSYCH ---
Social Work Progress Note Progress Note This mortgage loan underwriter returned call from pt's DCF worker, Jagdish Hurtado. A vm with call back number was provided.
--- NOTE | 2017-03-05 10:48 | SOCIAL WORKER PROG NOTE PSYCH ---
Social Work Progress Note Progress Note 10:47am This technical report writer left biju Leal at [facility] requesting a call back. Plan: discuss case regarding referral to [facility].
[2017-03-05 12:28] VITALS: BP 108/68
--- NOTE | 2017-03-05 13:21 | SOCIAL WORKER PROG NOTE PSYCH ---
Social Work Progress Note Progress Note SHAUNA BENAVIDEZ [id number] 1995 SHAUNA BENAVIDEZ [id number] Pended Authorization # Client Authorization # Type of Request [id number] CONCURRENT Date of Admission/ Start of Services Requested From Submission Date 03/02/2017 03/05/2017 03/05/2017
--- NOTE | 2017-03-05 13:41 | NUR ---
PT HAS BEEN CALM AND COOPERATIVE ALL SHIFT. SHE IS ATTENDING GROUPS AND VERBALIZING HER CONCERNS IN A CALM AND APPROPRIATE MANNER. WHEN ASKED SHE DENIED ANY THOUGHTS OF SUICIDE OR SELF HARM.PT IS COMPLIANT WITH HER MED REGIME AND WITH UNIT ROUTINE
--- NOTE | 2017-03-05 14:27 | SOCIAL WORKER PROG NOTE PSYCH ---
Social Work Progress Note Progress Note Sw received call from pt's DCF worker, Jagdish Hurtado. She requested update on pt' s progress in anticipation of a meeting regarding her child's custody. This telegraphic typewriter mechanic will review with Celestino Lynn, pt's prescriber on this unit, and return the call. This telegraphic typewriter mechanic spoke with Celestino Lynn regarding this call. Pt has been compliant with recommendations thus far on this unit. She is taking her medications as prescribed and attending groups. Pt is easily engaged and cooperative. She denies SI/HI/AH/VH. 2:20pm This telegraphic typewriter mechanic met with pt. Pt stated that it is her understanding from her DCF worker is that her child is currently in foster care and will be able to return home with the pt once a family meeting takes place. This telegraphic typewriter mechanic left vm for pt' s DCF worker will call back number requesting a call back. 3:33pm This telegraphic typewriter mechanic made second attempt to follow up with Lily Hurtado, DCF worker, by phone. A vm with call back number was provided.
[2017-03-05 16:41] VITALS: BP 140/64
--- NOTE | 2017-03-05 17:41 | NUR ---
PT IS CALM, COOPERATIVE WT STAFF AND PEERS, AND COMPLIANT WITH UNIT RULES. OFTEN IN MILIEU, PT IS INTERACTING WELL WITH OTHERS. MOOD IS STABLE, AFFECT APPEARS EUTHYMIC TO FULL RANGE, COMMUNICATION IS ORGANIZED AND APPEARS NORMAL IN ALL RESPECTS, AND APPETITE IS NORMAL. PT DENIES SI AT THIS TIME.
--- NOTE | 2017-03-05 17:51 | SOCIAL WORKER PROG NOTE PSYCH ---
Social Work Progress Note Progress Note 3:40pm This senior writer and Celestino Lynn APRN met with pt and her mother. Pt's mother reported that she did not have any concerns about the pt including safety towards herself or others or returning home. Pt discussed her goal to return to work and stated that she had previously worked at a [employer], which she enjoyed. Discharge plans were also discussed regarding treatment. Pt stated that she had previously attended treatment at [facility] and would like to return. She stated that she worked with Dameon Watters (last name unknown)LEVI for medication management. Pt was agreeable to attending IOP upon discharge from . Sw will follow up with [facility] to coordinate outpt tx. An anticipated d/c date of 03/07/17, , was identified.
[2017-03-05 19:43] VITALS: BP 134/62
--- NOTE | 2017-03-06 07:00 | NUR ---
PT SLEPT AFTER BENADRYL 50 PRN AT 2145. PT FOLLOWING HER ROOMMATE AROUND.
[2017-03-06 08:25] VITALS: BP 134/68
--- NOTE | 2017-03-06 10:33 | CP SOUTH PROGRESS NOTE PSYCH ---
Psych (Inpt) Progress Note Progress Note Include the following elements, when applicable: Involvement in the active treatment of the patient with behavioral observations of the patient and the patient's response to the treatment. Review of the ongoing treatment process in the context of the treatment plan. Indication of how multi-disciplinary staff members are carrying out the treatment plan. Plans for future interventions and recommendations for revision of the treatment plan. Liaison with other physicians/providers. Progress Note: I discussed this patient's progress to date, current mental status, treatment process in the context of the treatment plan, and discharge planning with staff/ team in the daily morning inpatient team meeting. I also met with the patient myself in individual session. Current Medications Sig/Lala Start time Last Medication Dose Route Stop Time Status Admin Albuterol Sulfate 2 PUF Q4-6 PRN PRN 03/02 1845 AC 03/05 INH 2011 Albuterol Sulfate 3 ML Q6-PRN PRN 03/02 1845 AC INH Budesonide/ 2 PUF BID 03/02 2200 AC 03/06 Formoterol Fumarate INH 0815 Diphenhydramine HCl 50 MG AT BEDTIME NEED.. 03/04 1125 AC 03/05 PO 2148 Hydroxyzine HCl 25 MG Q6-PRN PRN 03/02 1900 AC PO Lurasidone HCl 40 MG 1/2H B/BREAKF/DINNER 03/03 1630 AC 03/06 PO 0814 Melatonin 5 MG 2100 03/06 2100 AC PO Vital Signs Date Time Temp Pulse Resp B/P B/P Pulse O2 O2 Flow FiO2 Mean Ox Delivery Rate 03/06 0825 96.6 73 134/68 03/05 1943 97.7 64 134/62 03/05 1641 68 140/64 03/05 1228 88 108/68 A: Chart, progress notes, labs, vital signs and medication list reviewed. Vital signs within normal limits. No new lab results today. Met with patient individually at 10:20AM. She stated that family meeting yesterday went better than she expected. Stated she felt heard by her mother and supported. Reported continued sadness due to being away from her son. Expressed motivation to comply with DCF's recommendations as well as treatment recommendations post-discharge. Rated sadness/depression a 5/10 (10 being the worst) and anxiety a 4/10 (10 being the worst) in the context of her son being in temporary foster care. Denied feeling hopeless, helpless, worthless, or guilty. Denied passive/active suicidal ideation, plans and intent. Reported last endorsing SI x 6 days ago (on 03/01/17). Stated that if she feels unsafe or SI recurs post-discharge, she will notify her mother, have her mother watch her son , utilize coping skills such as going for a walk or talking to her mother, or go to the emergency department. Denied auditory and visual hallucinations. Denied paranoid ideation or delusions. No evidence of psychosis or huy. Reported interupted sleep last night. Appetite stable. Reported feeling less tired since Intuniv was rescheduled to QPM. Patient reported tolerating medications well, denied untoward effects. Agreeable to continue taking them. Collateral obtained from Mel at [facility]. Per Mel, the patient is presently in tx with Dameon Aguilera LCSW, and Mary Sanchez APRN. She is currently prescribed Latuda 40mg daily and Intuniv 1mg QPM. Current diagnoses include, Adjustment disorder with mixed anxiety and depressed mood, Borderline Personality Disorder and Intellectual disorder. Mel stated that [facility] is agreeable to having her return for tx and starting IOP. P: -cont. monitoring on unit for safety, mood and SI. -cont. current medication regimen. -Start Melatonin 5mg QHS for insomnia. -D/C tomorrow w/ [facility] IOP f/u - appointments with Dameon Aguilera LCSW on 03/07 at 3:30PM & Mary Sanchez APRN, on 03/14 at 11:30AM.
--- NOTE | 2017-03-06 11:37 | SOCIAL WORKER PROG NOTE PSYCH ---
Social Work Progress Note Progress Note Faxed [facility] IOP referral to [facility]. Spoke with Mel Carranza, she is going to look into follow-up appointments.
[2017-03-06 12:10] VITALS: BP 97/53
--- NOTE | 2017-03-06 12:47 | NUR ---
PT DID NOT GO TO PLANNING GROUP BUT DID ATTEND FOCUS, EASILY ENGAGED IN CONVERSATION, NO ISSUES OR COMPLAINTS REPORTED OR OBSERVED, KEEPS TO SELF AND OFTEN ON THE PERIPHERY AND SOCIAL WITH ROOMMATE, CALM, COOPERATIVE AND MEDICATION COMPLIANT, MOOD STABLE WITH FULL RANGE AFFECT.
[2017-03-06 16:05] VITALS: BP 147/64
--- NOTE | 2017-03-06 18:25 | NUR ---
PT IS CALM, COOPERATIVE WITH STAFF AND PEERS, AND COMPLIANT WITH UNIT RULES. OFTEN IN MILIEU, INTERACTING WELL WITH OTHERS. MOOD IS STABLE, AFFECT APPEARS EUTHYMIC TO FULL RANGE, COMMUNICATION IS ORGANIZED AND APPEARS NORMAL IN ALL RESPECTS, AND APPETITE IS NORMAL. PT DENIES SI AT THIS TIME.
--- NOTE | 2017-03-06 19:46 | SOCIAL WORKER PROG NOTE PSYCH ---
Social Work Progress Note Progress Note 2:20pm This typewriter assembly and parts inspector met with pt. Pt was in agreement with returning to [facility] for outpatient [facility]. Appointments are as follows: Dameon Aguilera LCSW - 03/07/17 at 3:30pm Mary Sanchez APRN - 03/14/17 at 11:30am Pt appeared motivated to continue with treatment through [facility] and stated that she enjoys working with Dameon for the individual therapy. Pt was actively engaged and spontaneous in the conversation with this typewriter assembly and parts inspector.
[2017-03-06 19:59] VITALS: BP 153/72
[2017-03-07 07:57] VITALS: BP 127/67
--- NOTE | 2017-03-07 08:36 | CP SOUTH PROGRESS NOTE PSYCH ---
Psych (Inpt) Progress Note Progress Note Include the following elements, when applicable: Involvement in the active treatment of the patient with behavioral observations of the patient and the patient's response to the treatment. Review of the ongoing treatment process in the context of the treatment plan. Indication of how multi-disciplinary staff members are carrying out the treatment plan. Plans for future interventions and recommendations for revision of the treatment plan. Liaison with other physicians/providers. Progress Note: I discussed this patient's progress to date, current mental status, treatment process in the context of the treatment plan, and discharge planning with staff/ team in the daily morning inpatient team meeting. I also met with the patient myself in individual session. Current Medications Sig/Lala Start time Last Medication Dose Route Stop Time Status Admin Albuterol Sulfate 2 PUF Q4-6 PRN PRN 03/02 1845 AC 03/06 INH 1140 Albuterol Sulfate 3 ML Q6-PRN PRN 03/02 1845 AC INH Budesonide/ 2 PUF BID 03/02 2200 AC 03/06 Formoterol Fumarate INH 2137 Diphenhydramine HCl 50 MG AT BEDTIME NEED.. 03/04 1125 AC 03/05 PO 2148 Hydroxyzine HCl 25 MG Q6-PRN PRN 03/02 1900 AC 03/06 PO 2137 Lurasidone HCl 40 MG 1/2H B/BREAKF/DINNER 03/03 1630 AC 03/07 PO 0716 Melatonin 5 MG 2100 03/06 2100 AC 03/06 PO 2136 Vital Signs Date Time Temp Pulse Resp B/P B/P Pulse O2 O2 Flow FiO2 Mean Ox Delivery Rate 03/07 0757 97.2 71 127/67 03/06 1959 97.5 98 153/72 03/06 1605 72 147/64 03/06 1210 74 97/53 Lab Cholesterol 157 MG/DL 03/07/17 0618 Cholesterol/HDL Ratio 5 % H 03/07/17 06 Glucose 96 mg/dL 03/01/17 1751 HDL Cholesterol 34 mg/dL L 03/07/17 06 LDL Cholesterol, Calc 86 mg/dL 03/07/17 06 Triglycerides 188 mg/dL H 03/07/17 0618 A: Chart, progress notes, labs, vital signs and medication list reviewed. Vital signs within normal limits. Cholesterol and Triglycerides mildly elevated. Met with the patient this morning, on the date of discharge. She presented alert and oriented x 3. Speech was normal in rate, tone and volume. Eye contact appropriate. Mood "happy." Affect bright, full, non-labile. She offered no complaints. Stated her sleep was improved with Melatonin. She reported her energy level is good. Rated anxiety a 0/10 (10 being the worst) and sadness/ depression a 4/10 (10 being the worst), in the context of missing her son. Stated that she is motivated to follow through with [facility]'s recommendations and engage in outpatient treatment at [facility]. She denied feeling hopeless, helpless , worthless and guilty. She denied passive and active suicidal ideation, plans and intent. She stated and also believed she will not harm herself or others. Gave protective factors of her son and mother. Denied homicidal ideation. Denied auditory and visual hallucinations. No evidence of paranoia or manuel delusions. Thought process concrete, goal-directed. Patient reported tolerating all medications well and denied untoward effects. Reported feeling safe and ready for discharge. P: -Discharge today into the care of her mother. -F/u at [facility] for individual therapy today, 3:30PM with Dameon Aguilera LCSW, and for medication management on 03/14/17, 11:30AM with Mary Sanchez APRN. -F/u at [facility] for IOP intake date/time. -All discharge prescriptions were e-prescribed to [facility] in [place], [place]. -Patient was advised that in the event of an emergency to call 911/go to the nearest emergency department. Patient verbalized understanding of instructions.
[2017-03-07] MEDS ORDERED: GUANFACINE HCL E1 MG PO (08:51)
[2017-03-07] MEDS ORDERED: SYMBICORT 16010.2 GM INH (08:51)
[2017-03-07] MEDS ORDERED: LATUDA40 M1 PO (08:51)
[2017-03-07] MEDS ORDERED: PROAIR HFA8.5 GM INH (08:51)
[2017-03-07] MEDS ORDERED: MELATONIN5 M7 PO (08:51)
--- NOTE | 2017-03-07 08:55 | DISCHARGE SUMMARY REPORT-PSYCH ---
Visit Information Visit Dates/Diagnosis' Admission Date: 03/02/17 Discharge Date: 03/07/17 Reason for Admission: Patient was admitted to inpatient psychiatry on a PEC after threatening to jump off a bridge with her 3-month-old child. Psy Discharge Primary Diag: Unspecified depressive disorder Psy Discharge Secondary Diag: R/O Unspecified mood disorder; R/O Unspecified personality disorder; R/O Unspecified impulse control disorder; R/O Borderline intellectual functioning; Asthma; Obesity. Hospital Course Significant Lab Findings: Lab ALT 62 U/L H 03/01/17 1751 Cholesterol 157 MG/DL 03/07/17617 Cholesterol/HDL Ratio 5 % H 03/07/17617 HDL Cholesterol 34 mg/dL L 03/07/17617 LDL Cholesterol, Calc 86 mg/dL 03/07/17617 Triglycerides 188 mg/dL H 03/07/17617 Course Complications: None. Consultations: The patient was seen for admission history and physical by reset merchandiser Dr. Raphael Watkins. Please see his note for additional information. Allergies: Coded Allergies: ibuprofen (Severe, HIVES 12/10/16) Hospital Course/TX Response: The patient was monitored on the unit for safety, mood, suicidal ideation and homicidal ideation. She participated in multimodal treatments on the unit. Latuda 40mg daily with food was increased to 40mg BID with food for depression/ mood stabilization. Intuniv 1mg daily was continued but rescheduled to every evening for impulse control. Melatonin 5mg QHS was started for insomnia. Outpatient medications for asthma were continued. The patient reported tolerating medications well and denied untoward effects. During the hospital course, the patient's mood and affect improved. She demostrated good behavioral and physical control. There was no evidence of impulsivity. She consistently denied suicidal and homicidal ideation. She reported that she made threat to harm herself and her infant due to feeling overwhelmed by the responsibilities of motherhood. She was informed that a DCF- 136 report was filed due to threat. She verbalized understanding and was accepting of information. A family meeting was held with the patient, her mother (Mary), Misti Rausch LCSW and Essence. The patient's treatment progress, medication regimen, level of safety and discharge planning were reviewed and discussed. Mary shared that the patient has a difficult time getting along with her and her twin sister, and not reacting to the word "no." Mary said the patient will occasionally "act out" when she doesn't get what she wants or is denied requests for money. Mary stated that the patient is a good mother, that she brings her son to doctor's appointments, makes sure his needs are met. Mary expressed no safety concerns surrounding the patient's involvement with her son or the patient's personal safety. Mary expressed that she is willing to have the patient return to her home and is in agreement with patient's discharge plan to follow up with [facility] for increased support post-discharge. The patient was also in agreement to [facility], but requested this be done at [facility] so that she can also resume individual therapy with Dameon Aguilera LCSW. On the date of discharge, 03/07/17, the patient presented alert and oriented x 3. Speech was normal in rate, tone and volume. Eye contact appropriate. Mood "happy." Affect bright, full, non-labile. She offered no complaints. Stated her sleep was improved with Melatonin. She reported her energy level is good. Rated anxiety a 0/10 (10 being the worst) and sadness/depression a 4/10 (10 being the worst), in the context of missing her son. Stated that she is motivated to follow through with [facility]'s recommendations and engage in outpatient treatment at [facility]. She denied feeling hopeless, helpless, worthless and guilty. She denied passive and active suicidal ideation, plans and intent. She stated and also believed she will not harm herself or others. Gave protective factors of her son and mother. Denied homicidal ideation. Denied auditory and visual hallucinations. No evidence of paranoia or manuel delusions. Thought process concrete, goal-directed. Patient reported tolerating all medications well and denied untoward effects. Reported feeling safe and ready for discharge. Discharge HBIPS - Tobacco Use Treatment Offered Post DC Medications Offered: Not Applicable Post DC Tobacco Treatment Plan: Not Applicable - EtOH/Drug Use D/O Treatment Offered Post DC Medications Offered: NA-No EtOH/Drug Use D/O Post DC EtOH/SubAbuse TX Plan: NA-No EtOH/Drug Use D/O Metabolic Screening - Screen if on a Neuroleptic Medication - Metabolic screening should include: - Blood Pressure, BMI, Glucose or Hgb A1c, & a - Lipid profile from within the past 365 days. Metabolic Screening () Not Applicable, patient not on a neuroleptic. OR ([X]) Patient on a neuroleptic(s) . Enter below results for Glucose or Hemoglobin A1C, and lipid panel if obtained during the last 365 days. BMI: 37.100 Blood Pressure: 132/65 Laboratory Results (If applicable): Lab Cholesterol 157 MG/DL 03/07/17 0618 Cholesterol/HDL Ratio 5 % H 03/07/17 0618 Glucose 96 mg/dL 03/01/17 1751 HDL Cholesterol 34 mg/dL L 03/07/17 0618 LDL Cholesterol, Calc 86 mg/dL 03/07/17 0618 Triglycerides 188 mg/dL H 03/07/17 0618 Discharge Instructions General Discharge Information Discharge Medications: Discharge Medications- (Dose, route, freq, indication): Multiple Neuroleptics: ([X]) Not Applicable OR Document below three failed attempts at monotherapy, or a plan to taper to monotherapy, or augmentation of Clozapine. () Patient's Diet: Regular. Patient's Activity: No restrictions. DC Disposition: Patient to return to home and mother. Recommendations: The patient was advised to please take her medications as prescribed. She was advised to follow up with scheduled appointments at [facility], with DCF and her PCP for elevated triglycerides. She was advised that in the event of an emergency to call 911/go to the nearest emergency department. The patient verbalized understanding of all instructions. Referred To: Post Discharge Referrals Provider Referral Service Date: 03/07/17 Referred To: [[facility]] Notes: [facility] [address] [facility]#[phone] Individual therapy: 03/07/17, 3:30pm with Dameon Aguilera LCSW. Referral placed with [facility] for IOP. Start date TBA. Provider Referral Service Date: 03/14/17 Referred To: [[facility]] Notes: [facility] [address] [place], [place] [phone] Medication appointment: 03/14/17, 11:30am with Jose Sanchez APRN Copies To: [facility]
--- NOTE | 2017-03-07 11:05 | NUR ---
PT IS PRESENT WITHIN THE MILIEU AND APPROPRIATE WITH PEERS AND STAFF, NO ISSUES OR COMPLAINTS REPORTED OR OBSERVED, ATTENDING GROUPS, THIS MORNING IN PLANNING SELF REPORTED + SLEEP AND MOOD. INFORMATION PACKET RE: SI AND DEPRESSION AND PT RESOURCE GUIDE REVIEWED AND W-10 WELL AND VERBALIZED UNDERSTANDING AND NO QUESTIONS OR CONCERNS. WHEN ASKED DIRECTLY DENIES SI/HI/HALLUCINATIONS AND TEAM DEEMED SAFE/STABLE FOR DISCHARGE TODAY. MOOD IS STABLE WITH FULL RANGE AFFECT AND REPORTS OVERALL IMPROVEMENT IN MOOD/MENTAL STATUS/BEHAVIOR/SLEEP. PT IS CURRENTLY MEETING WITH SANDBLASTER STONE PROVIDER AND COORDINATING LAST DETAILS RE: DISCHARGE DISPO.
--- NOTE | 2017-03-07 11:46 | SOCIAL WORKER PROG NOTE PSYCH ---
Social Work Progress Note Progress Note Phoned [facility] - Mel Carranza is out for the rest of the day, and no one was available. Informed that Ghislaine has an appointment today with Dameon Aguilera LCSW at 3:30pm, and she can discuss the IOP intake appointment with Mr. Aguilera (where further discussion of IOP intake can take place). IOP referral was faxed to [facility] on 03/06/17. Also, informed that Ghislaine will be seeing Mary Sanchez APRN on 03/14/17 at 11: 40pm.
[2017-03-07 12:17] VITALS: BP 132/65
--- NOTE | 2017-03-07 14:45 | SOCIAL WORKER PROG NOTE PSYCH ---
Social Work Progress Note Progress Note This remote mortgage underwriter met with patient this morning as she is scheduled to discharge from [facility] today. Pt was informed of the following discharge plans: 1. Care: Dameon Aguilera LCSW at 3:30pm today 2. Care: Jose Sanchez APRN, 03/14/17, 11:30am for medication This remote mortgage underwriter spoke with Mel at [facility] who confirmed that the pt will meet with Dameon today for an individual session and he will assist in scheduling IOP treatment as IOP is recommended. This remote mortgage underwriter informed the pt of this which she was in agreement with. She also agreed to follow up with the medication management appointment as scheduled. Pt appeared motived to continue with outpatient treatment. She denied SI/HI/VH/AH.
--- NOTE | 2017-03-07 14:55 | SOCIAL WORKER PROG NOTE PSYCH ---
Social Work Progress Note Progress Note 12:09pm This news writer spoke with Jagdish Hurtado at [facility] to follow up from the DCF worker's vm. Upon her inquiry, this news writer provided discharge information (medications and discharge plans). She stated that she plans to contact the pt to schedule a time to meet next week. She inquired about pt's ability to participate in a family meeting. This news writer will discuss with Celestino Lynn APRN and contact Lily Hurtado. 2:53pm This news writer left for Lily Hurtado with call back number to follow up on previous discussion. (Per discussion with Celestino Lynn APRN, no concerns were identified that would impact the pt's ability to participate in a family meeting.)
== END 2017-03-07 13:00 | DRG 754 ==
LOC: ERH 16:49 → ERHI 03-02 12:30 → CP SOUTH 03-02 12:30 → ERHI 03-02 14:57 → ENTRNSPT 03-02 15:28 → CP SOUTH 03-02 16:41 → CMPTRNSPT 03-02 16:45 → CP SOUTH 03-04 08:22
PROVIDERS: Physician Assistant; Registered Nurse Psychiatric/Mental Health; ADMIT Psychiatry & Neurology Addiction Medicine
DX: F32.9 Major depressive disorder, single episode, unspecified (principal); J45.909 Unspecified asthma, uncomplicated; E66.9 Obesity, unspecified; F39 Unspecified mood [affective] disorder; F60.9 Personality disorder, unspecified; F63.9 Impulse disorder, unspecified
CPT/HCPCS: 36415; 80307; 81001; 81025; G0480; J3490

== ENCOUNTER 2017-03-26 12:21 | Emergency (ER) | payer OTHER ==
[~2017-03-26] VITALS: Ht 167.6 cm; Wt 102.1 kg
[~2017-03-26 12:21] MED LIST changes: +GUANFACINE HCL E1 MG PO; +MELATONIN5 M7 PO
[2017-03-26 12:29] VITALS: BP 132/74
[2017-03-29] MEDS ORDERED: MOBIC15 M1 PO (23:33)
[2017-03-29] MEDS ORDERED: CYCLOBENZAPRINE10 M1 PO (23:33)
[2017-03-31] MEDS ORDERED: NAPROSYN500 M1 PO (17:00)
== END 2017-03-26 14:07 | disposition admitted as inpatient to this hospital (09) ==
LOC: ERH 12:21
DX: R10.9 Unspecified abdominal pain (principal)
CPT/HCPCS: 81001; 81025; 99281